=== PATIENT | female | born 1945 | race Caucasian/White ===

== ENCOUNTER 2017-05-20 00:53 | Inpatient (IN) | payer MEDICARE ==
[~2017-05-20] VITALS: Ht 154.9 cm; Wt 71.3 kg
[2017-05-20] MEDS ORDERED: SIMV20TA3 PO (01:19)
[2017-05-20] MEDS ORDERED: AMIT50TA PO (01:19)
[2017-05-20] MEDS ORDERED: LIRA0.6P2 SQ (01:19)
[2017-05-20] MEDS ORDERED: QUIN20TA7 PO (01:19)
[2017-05-20] MEDS ORDERED: DONE10TA7 PO (01:19)
[2017-05-20] MEDS ORDERED: METF10002 PO (01:19)
[2017-05-20] MEDS ORDERED: ACETAMINOPHEN 325 MG TABLET PO PRN (02:45)
[2017-05-20] MEDS ORDERED: MAGNESIUM HYDROXIDE 2,400 MG/30 ML ORAL.SUSP. PO PRN (02:45)
[2017-05-20] MEDS ORDERED: METHYL SALICYLATE/MENTHOL TOPICAL OINTMENT 29GM TUBE. TP PRN (02:45)
[2017-05-20] MEDS ORDERED: MAG HYDROX/AL HYDROX/SIMETH 30 ML ORAL.SUSP PO PRN (02:45)
[2017-05-20 03:03] VITALS: BP 202/111
[2017-05-20 05:42] VITALS: BP 186/95
--- NOTE | 2017-05-20 06:00 | PDOC1 ---
History of Present Illness Reason for Visit: Behaviors History of Present Illness Pt here for evaluation of dementia in H unit. Pt is a relatively poor historian, though her ROS seems accurate. She denies any physical problems. States she does have a chronic rash on her arms that she uses a salve for, but does not have it here. She states she normally lives with her . Allergies: Coded Allergies: No Known Drug Allergies (Unverified , 05/20/17) Past Medical History Cardiac: HTN, hyperipidemia Endocrine: Diabetes Past Surgical History: No pertinent history Family History: No pertinent hx Past Social History Smoke: No Alcohol: none Drugs: None Lives: with Family Review of Systems Review Of Systems Fourteen system , review of systems has been reviewed. 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 all other systems are negative, non pertinent or non contributory Allergies: Coded Allergies: No Known Drug Allergies (Unverified , 05/20/17) Medications Current Medications Acetaminophen (Tylenol) 650 mg PRN Q6HRS PRN PO PAIN / TEMP; Start 05/20/17 at 02:45 Multi-Ingredient Ointment (Analgesic [employer]) 1 renetta PRN QID PRN TP MUSCLE PAIN; Start 05/20/17 at 02:45 Al Hydroxide/Mg Hydroxide (Mylanta Plus Xs) 15 ml PRN AFTMEALHC PRN PO DYSPEPSIA; Start 05/20/17 at 02:45 Magnesium Hydroxide (Milk Of Magnesia) 2,400 mg PRN QHS PRN PO CONSTIPATION; Start 05/20/17 at 02:45 Amitriptyline HCl (Elavil) 50 mg HS PO ; Start 05/20/17 at 21:00 Donepezil HCl (Aricept) 10 mg HS PO ; Start 05/20/17 at 21:00 Active Scripts Active Reported Victoza 3-Johan (Liraglutide) 0.6 Mg/0.1 Ml Pen.injctr 1.8 Mg SQ DAILY Amitriptyline Hcl 50 Mg Tablet 50 Mg PO HS Simvastatin 20 Mg Tablet 20 Mg PO HS Donepezil Hcl 10 Mg Tablet 10 Mg PO HS Metformin Hcl 1,000 Mg Tablet 1,000 Mg PO [id number] Quinapril Hcl 20 Mg Tablet 20 Mg PO DAILY Exam Vital Signs Vital Signs Date Time Temp Pulse Resp B/P (MAP) Pulse Ox O2 Delivery O2 Flow Rate FiO2 05/20/17 05:42 98.2 100 16 186/95 (125) 95 Room Air General Appearance: Alert, Cooperative, No acute distress HEENT: Atraumatic, PERRLA, EOMI, Mucous membr. moist/pink, Other (Neck supple, full ROM, no JVD, no LAD) Respiratory: Clear to auscultation, Normal air movement Heart: Regular rate, Normal S1, Normal S2, No murmurs Abdominal: Normal bowel sounds, Soft, No tenderness, No hepatospenomegaly Extremities: No edema, Normal pulses, Other (Both arms w/ thickened excoriated skin and no infection, c/w possible eczema or some other type of dermatitis) Skin: No breakdown Neuro: Normal gait, Strength at 5/5 X4 ext, Normal tone, Cranial nerves 3-12 NL Psych/Mental Status: Mood NL Assessment/Plan Assessment/Plan 1. Dementia w behaviors: Per Dr. Ledesma 2. HTN: ELevated. Increase lisinopril to 20 mg BID. Monitor pressures. 3. Hypokalemia: KCL 40 meq PO x 1, recheck BMP in AM. 4. Hypomagnesemia: Start 400 mg Mag-Ox daily, repeat in AM. 5. DM: COntinue metformin, monitor sugars. 6. DVT proph: Ambulatory. COURSE Allergies Coded Allergies Type Severity Reaction Last Updated Verified No Known Drug Allergies 05/20/17 No Current Medications Medications (Trade) Dose Ordered Sig/[place] Route PRN Reason Start Time Stop Time Status Last Admin Dose Admin Acetaminophen (Tylenol) 650 mg PRN Q6HRS PRN PO PAIN / TEMP 05/20/17 02:45 Multi-Ingredient Ointment (Analgesic [employer]) 1 renetta PRN QID PRN TP MUSCLE PAIN 05/20/17 02:45 Al Hydroxide/Mg Hydroxide (Mylanta Plus Xs) 15 ml PRN AFTMEALHC PRN PO DYSPEPSIA 05/20/17 02:45 Magnesium Hydroxide (Milk Of Magnesia) 2,400 mg PRN QHS PRN PO CONSTIPATION 05/20/17 02:45 Amitriptyline HCl (Elavil) 50 mg HS PO 05/20/17 21:00 Donepezil HCl (Aricept) 10 mg HS PO 05/20/17 21:00 Vital Signs Date Time Temp Pulse Resp B/P (MAP) Pulse Ox O2 Delivery O2 Flow Rate FiO2 05/20/17 05:42 98.2 100 16 186/14 (318) 95 Room Air KIP ODELL MD May 20, 2017 06:00
[2017-05-20 07:12] LABS: BASO % 1 % (0-3); EOS # 0.2 x10^3/uL (0.0-0.7); EOS % 4 % (0-3); HEMATOCRIT 38.7 % (36.0-47.0); HEMOGLOBIN 12.9 g/dL (12.0-15.5); LYMPH # 1.8 x10^3/uL (1.0-4.8); LYMPH % 25 % (24-48); MEAN CORPUSCULAR HEMOGLOBIN 29 pg (25-35); MEAN CORPUSCULAR HGB CONC 33 g/dL (31-37); MEAN CORPUSCULAR VOLUME 87 fL (79-100); MONO # 0.5 x10^3/uL (0.0-1.1); MONO % 8 % (0-9); NEUT # 4.4 x10^3uL (1.8-7.7); NEUT % 63 % (31-73); PLATELET COUNT 239 x10^3/uL (140-400); RED BLOOD COUNT 4.46 x10^6/uL (3.50-5.40); RED CELL DISTRIBUTION WIDTH 14.8 % (11.5-14.5)
[2017-05-20 07:29] LABS: ALBUMIN 3.2 g/dL (3.4-5.0); ALBUMIN/GLOBULIN RATIO 0.9 (1.0-1.7); CALCIUM 8.5 mg/dL (8.5-10.1); CREATININE 0.9 mg/dL (0.6-1.0); GFR 61.2; POTASSIUM 3.3 mmol/L (3.5-5.1); TOTAL BILIRUBIN 0.2 mg/dL (0.2-1.0); TOTAL PROTEIN 6.8 g/dL (6.4-8.2)
[2017-05-20] MEDS: metFORMIN 500 MG TABLET PO SCH ×2 (08:07→17:41)
[2017-05-20] MEDS ORDERED: LISINOPRIL 20 MG TABLET PO SCH (09:00)
[2017-05-20] MEDS ORDERED: Liraglutide (Victoza) 1.8 MG SQ SCH (09:00)
[2017-05-20 10:58] LABS: THYROID STIM HORMONE (TSH) 3.484 uIU/mL (0.358-3.740)
[2017-05-20 12:08] LABS: T3 TOTAL 140 ng/dL (71-180); THYROXINE 7.7 ug/dL (4.5-12.0)
[2017-05-20] MEDS ORDERED: GLIM2TAB2 PO (16:12)
[2017-05-20 16:28] VITALS: BP 134/79
[2017-05-20] MEDS: Liraglutide (Victoza) 1.8 MG SQ SCH (17:40)
[2017-05-20] MEDS ORDERED: POTASSIUM CHLORIDE 20 MEQ TABLET.ER. PO ONE (20:00)
[2017-05-20] MEDS: LISINOPRIL 20 MG TABLET PO SCH (20:23)
[2017-05-20] MEDS: DONEPEZIL HCL 10 MG TABLET PO SCH (20:23)
[2017-05-20] MEDS: MAGNESIUM OXIDE 400 MG TABLET PO SCH (20:24)
[2017-05-20] MEDS: SIMVASTATIN 20 MG TABLET PO SCH (20:24)
[2017-05-20] MEDS ORDERED: AMITRIPTYLINE HCL 50 MG TABLET PO SCH (21:00)
[2017-05-20 21:11] LABS: HEMOGLOBIN A1C 6.4 % (4.8-5.6)
--- NOTE | 2017-05-20 23:15 | PDOC ---
Exam Roberto Demential Exam: Roberto Note: Please also refer to the separate dictated note~for this date of service dictated separately.~Patient seen individually. Discussed the patient with Nursing staff reviewed the chart.~Reviewed interim history and current functioning. Reviewed vital signs,~Labs/ Radiology~and current medications noted below. Continue current treatment with the changes noted in the dictated addendum note Assessment: Vital Signs: Vital Signs Date Time Temp Pulse Resp B/P (MAP) Pulse Ox O2 Delivery O2 Flow Rate FiO2 05/20/17 20:23 96 134/79 05/20/17 16:28 98.6 16 97 05/20/17 05:42 Room Air I&O Intake and Output 05/20/17 07:00 Intake Total 120 ml Balance 120 ml Intake Oral 120 ml Labs: Laboratory Tests Test 05/20/17 06:15 05/20/17 06:52 Magnesium Level 1.6 mg/dL (1.8-2.4) L White Blood Count 7.0 x10^3/uL (4.0-11.0) Red Blood Count 4.46 x10^6/uL (3.50-5.40) Hemoglobin 12.9 g/dL (12.0-15.5) Hematocrit 38.7 % (36.0-47.0) Mean Corpuscular Volume 87 fL (79-100) Mean Corpuscular Hemoglobin 29 pg (25-35) Mean Corpuscular Hemoglobin Concent 33 g/dL (31-37) Red Cell Distribution Width 14.8 % (11.5-14.5) H Platelet Count 239 x10^3/uL (140-400) Neutrophils (%) (Auto) 63 % (31-73) Lymphocytes (%) (Auto) 25 % (24-48) Monocytes (%) (Auto) 8 % (0-9) Eosinophils (%) (Auto) 4 % (0-3) H Basophils (%) (Auto) 1 % (0-3) Neutrophils # (Auto) 4.4 x10^3uL (1.8-7.7) Lymphocytes # (Auto) 1.8 x10^3/uL (1.0-4.8) Monocytes # (Auto) 0.5 x10^3/uL (0.0-1.1) Eosinophils # (Auto) 0.2 x10^3/uL (0.0-0.7) Basophils # (Auto) 0.0 x10^3/uL (0.0-0.2) Sodium Level 139 mmol/L (136-145) Potassium Level 3.3 mmol/L (3.5-5.1) L Chloride Level 104 mmol/L (98-107) Carbon Dioxide Level 31 mmol/L (21-32) Anion Gap 4 (6-14) L Blood Urea Nitrogen 13 mg/dL (7-20) Creatinine 0.9 mg/dL (0.6-1.0) Estimated GFR (Cockcroft-Gault) 61.2 BUN/Creatinine Ratio 14 (6-20) Glucose Level 242 mg/dL (70-99) H Hemoglobin A1c 6.4 % (4.8-5.6) H Calcium Level 8.5 mg/dL (8.5-10.1) Iron Level 51 ug/dL (50-170) Total Iron Binding Capacity 291 ug/dL (250-450) Iron Saturation 18 % (15-34) Total Bilirubin 0.2 mg/dL (0.2-1.0) Aspartate Amino Transferase (AST) 23 U/L (15-37) Alanine Aminotransferase (ALT) 20 U/L (14-59) Alkaline Phosphatase 67 U/L (46-116) Total Protein 6.8 g/dL (6.4-8.2) Albumin 3.2 g/dL (3.4-5.0) L Albumin/Globulin Ratio 0.9 (1.0-1.7) L Triglycerides Level 119 mg/dL (0-150) Cholesterol Level 181 mg/dL (0-200) LDL Cholesterol, Calculated 90 mg/dL (0-100) VLDL Cholesterol, Calculated 23 mg/dL (0-40) Non-HDL Cholesterol Calculated 113 mg/dL (0-129) HDL Cholesterol 68 mg/dL (40-60) H Cholesterol/HDL Ratio 2.0 25-Hydroxy Vitamin D Total Pending Thyroid Stimulating Hormone (TSH) 3.484 uIU/mL (0.358-3.740) Thyroxine (T4) 7.7 ug/dL (4.5-12.0) Total Triiodothyronine (TT3) 140 ng/dL (71-180) RPR Titer Additional Testing Pending Current Medications: Meds: Current Medications Acetaminophen (Tylenol) 650 mg PRN Q6HRS PRN PO PAIN / TEMP; Start 05/20/17 at 02:45 Multi-Ingredient Ointment (Analgesic [place]) 1 renetta PRN QID PRN TP MUSCLE PAIN; Start 05/20/17 at 02:45 Al Hydroxide/Mg Hydroxide (Mylanta Plus Xs) 15 ml PRN AFTMEALHC PRN PO DYSPEPSIA; Start 05/20/17 at 02:45 Magnesium Hydroxide (Milk Of Magnesia) 2,400 mg PRN QHS PRN PO CONSTIPATION; Start 05/20/17 at 02:45 Amitriptyline HCl (Elavil) 50 mg HS PO Last administered on 05/20/17 20:24; Start 05/20/17 at 21:00 Donepezil HCl (Aricept) 10 mg HS PO Last administered on 05/20/17 20:23; Start 05/20/17 at 21:00 Simvastatin (Zocor) 20 mg HS PO Last administered on 05/20/17 20:24; Start 09/24 at 21:00 Non-Formulary Medication 1.8 mg DAILY SQ ; Start 05/20/17 at 09:00; Stop at 16:33; Status DC Metformin HCl (Glucophage) 1,000 mg BIDWMEALS PO Last administered on 17:41; Start 05/20/17 at 08:00 Lisinopril (Prinivil) 20 mg DAILY PO Last administered on 05/20/17 08:07; Start 05/20/17 at 09:00; Stop 05/20/17 at 19:28; Status DC Olanzapine (ZyPREXA ZYDIS) 2.5 mg PRN Q2HR PRN PO PSYCHOSIS; Start 05/20/17 at 16:00 Non-Formulary Medication 1.8 mg DAILYWSUP SQ Last administered on 05/20/17 17: 40; Start 05/20/17 at 17:00 Potassium Chloride (Klor-Con) 40 meq 1X ONCE PO Last administered on 20:23; Start 05/20/17 at 20:00; Stop 05/20/17 at 20:01; Status DC Magnesium Oxide (Magnesium Oxide) 400 mg DAILY PO Last administered on 20:24; Start 05/20/17 at 20:00 Lisinopril (Prinivil) 20 mg BID PO Last administered on 05/20/17 20:23; Start 05/20/17 at 21:00 Multi-Ingred Cream/Lotion/Oil/ Oint (Hydrocerin) 1 renetta BID TP ; Start 05/21/17 at 09:00 Active Scripts Active Reported Glimepiride 2 Mg Tablet 2 Mg PO DAILY Victoza 3-Johan (Liraglutide) 0.6 Mg/0.1 Ml Pen.injctr 1.8 Mg SQ DAILY Amitriptyline Hcl 50 Mg Tablet 50 Mg PO HS Simvastatin 20 Mg Tablet 20 Mg PO HS Donepezil Hcl 10 Mg Tablet 10 Mg PO HS Metformin Hcl 1,000 Mg Tablet 1,000 Mg PO [id number] Quinapril Hcl 20 Mg Tablet 20 Mg PO DAILY Diagnosis: Problems: (1) Dementia (2) Anxiety disorder (3) Dementia in Alzheimer's disease with delusions (4) Dementia in Alzheimer's disease with depression (5) Dementia, vascular, with delusions (6) Dementia, vascular, with depression (7) Impulse control disorder (8) Psychosis, atypical SHAE GRANT MD May 20, 2017 23:15
[2017-05-21 06:17] VITALS: BP 105/60
[2017-05-21] MEDS: metFORMIN 500 MG TABLET PO SCH ×2 (07:54→18:28)
[2017-05-21] MEDS: MAGNESIUM OXIDE 400 MG TABLET PO SCH (07:54)
[2017-05-21] MEDS: LISINOPRIL 20 MG TABLET PO SCH ×2 (07:55→20:15)
[2017-05-21 08:06] LABS: CALCIUM 8.9 mg/dL (8.5-10.1); CREATININE 0.9 mg/dL (0.6-1.0); GFR 61.2; MAGNESIUM 1.7 mg/dL (1.8-2.4); POTASSIUM 3.9 mmol/L (3.5-5.1)
[2017-05-21] MEDS: MINERAL OIL/PETROLATUM TOPICAL CREAM 113GM JAR. TP SCH ×2 (10:50→20:17)
--- NOTE | 2017-05-21 12:00 | HP ---
ADMIT DATE: 05/20/2017 I met with the patient the evening of 05/20/2017 for this evaluation. IDENTIFYING DATA: The patient is a 72-year-old female referred to us from [facility] Emergency Room where she presented from home where she lives with her . The patient has had increasing short-term memory problems, has been irritable, angry regarding her increasing forgetfulness, has made suicidal statements, agitated. Despite her confusion, reportedly, she is still driving. She has been extremely labile, walked out of her doctor's office. Behaviors are deemed dangerous and failed outpatient psychiatric interventions resulting in this referral for inpatient psychiatric stabilization. CHIEF COMPLAINT: "I came here this morning." This was accurate. HISTORY OF PRESENT ILLNESS: The patient has a history of dementia, Alzheimer's of vascular type. She continues to reside at home with her and is getting increasingly paranoid, depressed, making suicidal statements, frustrated about her memory loss, angry, irritable, labile in her mood. She reportedly has continued to drive raising additional risks of her behaviors. No clear history of bipolar disorder, suicidal or homicidal ideation. PAST PSYCHIATRIC HISTORY: As above. MEDICAL HISTORY: Code status: DNR. Positive for hypertension, diabetes mellitus, hyperlipidemia. DIET: Low sugar diabetic diet. Takes her medications whole. Ambulates independently. ALLERGIES: Negative. CURRENT PSYCHOTROPICS: Aricept 10 mg a day, amitriptyline 50 mg at bedtime, Zyprexa p.r.n. FAMILY HISTORY: Noncontributory. SOCIAL HISTORY: No history of alcohol or drug abuse, physical, sexual or elder abuse. She is not known to be a perpetrator. MENTAL STATUS EXAMINATION: The patient was seen individually evening of 05/20/2017. She is pleasant, smiling as I met with her, walking up and down the hallway with a couple of other demented patients following her. She thought the year was 2015, unaware of the month, knew that she came in earlier in the day on 05/20/2017, that she lives at home with her , minimizes most problems, but smiled and was able to accept that she is having memory problems. Speech is coherent. Thought processes generally goal directed. Attention span short. Language function intact. Mood is dysphoric, anxious, and somewhat paranoid. Affect is mood congruent. No active suicidal or homicidal ideation. LABORATORY DATA: Reviewed. REVIEW OF SYSTEMS: No CV, , eye, ENT or pulmonary system symptoms on review. IMPRESSION: Major neurocognitive disorder, probably vascular, Alzheimer's with depression, delusion, behavioral disturbance; anxiety disorder, unspecified, impulse control disorder, unspecified. Rest diagnoses unchanged from above. PLAN: Admit to Geropsychiatry Unit at [facility]. I will see the patient daily individually from a psychiatric standpoint. Medical followup per Dr. Mc/Dr. Anna. Continue the patient on her current psychotropics. We will consider starting Zoloft as an antidepressant and antianxiety agent that should help her agitation as well. May consider low-dose Seroquel during the day and consider stopping the amitriptyline since the central anticholinergic side effects could worsen some of her agitation. Make further adjustments as clinically indicated. MAN Miri GRANT MD DR: HAN/john paul JOB#: [id number] / [id number]
[2017-05-21 17:29] VITALS: BP 132/62
[2017-05-21] MEDS: Liraglutide (Victoza) 1.8 MG SQ SCH (18:40)
[2017-05-21] MEDS: DONEPEZIL HCL 10 MG TABLET PO SCH (20:14)
[2017-05-21] MEDS: SIMVASTATIN 20 MG TABLET PO SCH (20:15)
[2017-05-21] MEDS: MIRTAZAPINE 7.5 MG TABLET. PO SCH (20:17)
--- NOTE | 2017-05-21 20:21 | PDOC ---
Exam Roberto Demential Exam: Roberto Note: Please also refer to the separate dictated note~for this date of service dictated separately.~Patient seen individually. Discussed the patient with Nursing staff reviewed the chart.~Reviewed interim history and current functioning. Reviewed vital signs,~Labs/ Radiology~and current medications noted below. Continue current treatment with the changes noted in the dictated addendum note Assessment: Vital Signs: Vital Signs Date Time Temp Pulse Resp B/P (MAP) Pulse Ox O2 Delivery O2 Flow Rate FiO2 05/21/17 20:15 86 132/62 05/21/17 17:29 98.6 16 97 05/20/17 05:42 Room Air I&O Intake and Output 05/21/17 07:00 Intake Total 1000 ml Balance 1000 ml Intake Oral 1000 ml Labs: Laboratory Tests Test 05/21/17 07:00 Sodium Level 141 mmol/L (136-145) Potassium Level 3.9 mmol/L (3.5-5.1) Chloride Level 104 mmol/L (98-107) Carbon Dioxide Level 28 mmol/L (21-32) Anion Gap 9 (6-14) Blood Urea Nitrogen 14 mg/dL (7-20) Creatinine 0.9 mg/dL (0.6-1.0) Estimated GFR (Cockcroft-Gault) 61.2 Glucose Level 156 mg/dL (70-99) H Calcium Level 8.9 mg/dL (8.5-10.1) Magnesium Level 1.7 mg/dL (1.8-2.4) L Current Medications: Meds: Current Medications Acetaminophen (Tylenol) 650 mg PRN Q6HRS PRN PO PAIN / TEMP; Start 05/20/17 at 02:45 Multi-Ingredient Ointment (Analgesic [place]) 1 renetta PRN QID PRN TP MUSCLE PAIN; Start 05/20/17 at 02:45 Al Hydroxide/Mg Hydroxide (Mylanta Plus Xs) 15 ml PRN AFTMEALHC PRN PO DYSPEPSIA; Start 05/20/17 at 02:45 Magnesium Hydroxide (Milk Of Magnesia) 2,400 mg PRN QHS PRN PO CONSTIPATION; Start 05/20/17 at 02:45 Amitriptyline HCl (Elavil) 50 mg HS PO Last administered on 05/20/17t 20:24; Start 05/20/17 at 21:00; Stop 05/21/17 at 20:03; Status DC Donepezil HCl (Aricept) 10 mg HS PO Last administered on 05/21/17 20:14; Start 05/20/17 at 21:00 Simvastatin (Zocor) 20 mg HS PO Last administered on 05/21/17 20:15; Start 09/24 at 21:00 Non-Formulary Medication 1.8 mg DAILY SQ ; Start 05/20/17 at 09:00; Stop at 16:33; Status DC Metformin HCl (Glucophage) 1,000 mg BIDWMEALS PO Last administered on 18:28; Start 05/20/17 at 08:00 Lisinopril (Prinivil) 20 mg DAILY PO Last administered on 05/20/17 08:07; Start 05/20/17 at 09:00; Stop 05/20/17 at 19:28; Status DC Olanzapine (ZyPREXA ZYDIS) 2.5 mg PRN Q2HR PRN PO PSYCHOSIS; Start 05/20/17 at 16:00 Non-Formulary Medication 1.8 mg DAILYWSUP SQ Last administered on 05/21/17 18: 40; Start 05/20/17 at 17:00 Potassium Chloride (Klor-Con) 40 meq 1X ONCE PO Last administered on 20:23; Start 05/20/17 at 20:00; Stop 05/20/17 at 20:01; Status DC Magnesium Oxide (Magnesium Oxide) 400 mg DAILY PO Last administered on 07:54; Start 05/20/17 at 20:00 Lisinopril (Prinivil) 20 mg BID PO Last administered on 05/21/17 20:15; Start 05/20/17 at 21:00 Multi-Ingred Cream/Lotion/Oil/ Oint (Hydrocerin) 1 renetta BID TP Last administered on 05/21/17 20:17; Start 05/21/17 at 09:00 Mirtazapine (Remeron) 7.5 mg QHS PO Last administered on 05/21/17 20:17; Start 05/21/17 at 21:00 Sertraline HCl (Zoloft) 25 mg DAILY PO ; Start 05/22/17 at 09:00 Active Scripts Active Reported Glimepiride 2 Mg Tablet 2 Mg PO DAILY Victoza 3-Johan (Liraglutide) 0.6 Mg/0.1 Ml Pen.injctr 1.8 Mg SQ DAILY Amitriptyline Hcl 50 Mg Tablet 50 Mg PO HS Simvastatin 20 Mg Tablet 20 Mg PO HS Donepezil Hcl 10 Mg Tablet 10 Mg PO HS Metformin Hcl 1,000 Mg Tablet 1,000 Mg PO [id number] Quinapril Hcl 20 Mg Tablet 20 Mg PO DAILY Diagnosis: Problems: (1) Dementia (2) Anxiety disorder (3) Dementia in Alzheimer's disease with delusions (4) Dementia in Alzheimer's disease with depression (5) Dementia, vascular, with delusions (6) Dementia, vascular, with depression (7) Impulse control disorder (8) Psychosis, atypical SHAE GRANT MD May 21, 2017 20:21
--- NOTE | 2017-05-22 05:21 | ACF ---
Admission Criteria Forms PSYCHIATRIC DISORDERS Clinical Indications for Inpatient Care (Place 'X' for any and all applicable criteria): Ongoing inpatient care may be needed for 1 or more of the following(1)(2)(3)(4)( 6)(7)(8): [ ]I. Danger to self or others not manageable at lower level of care. [ ]II. Grave disability (eg, inability to perform self care necessary at lower level of care) [ ]III. Agitation or inappropriate behavior interfering with care for primary condition (eg, attempting to discontinue lines or drains prematurely, unable to cooperate with respiratory care) [X]IV. Severe disability or disorder indicated by ALL of the following: [X]a) Severe behavioral health disorder-related symptoms or condition indicated by 1 or more of the following: [X]i) Severe problem with cognition, memory, judgment, or impulse control [ ]ii) Severe clinical manifestations (eg, hallucinations, delusions, other acute psychotic symptoms, coco, extreme agitation or anxiety) [X]b) Patient management at lower level of care is not feasible until acute intervention or modification is initiated. Extended stay beyond goal length of stay for the primary condition may be needed untilALLof the following are present(1)(2)(3)(4)(722)(23): [ ]a) Danger to self or others is absent or manageable at lower level of care [ ]b) Behavior crisis management, including physical or chemical restraints, is required and is not available at a lower level of care. [ ]c) Behavioral symptoms (e.g., agitation, somnolence, inappropriate behavior) are present, and are not manageable at a lower level of care. [ ]d) Patient cannot understand follow-up treatment and crisis plan. [ ]e) Provider and supports are sufficiently available at lower level of care. [ ]f) Patient can participate (e.g., verify absence of plan for harm) and is in needed of monitoring. The original [facility] [employer] content created by [facility] [employer] has been revised. The portions of the content which have been revised are identified through the use of italic text, and [employer] has neither reviewed nor approved the modified material. All other unmodified content is copyright [facility] [employer]. Please see references footnoted in the original [facility] edition 2015 Admission Criteria Met?: Yes TATIANA MEADOWS May 22, 2017 05:21
[2017-05-22 06:15] VITALS: BP 134/72
[2017-05-22] MEDS: metFORMIN 500 MG TABLET PO SCH ×2 (08:00→17:39)
[2017-05-22] MEDS: MAGNESIUM OXIDE 400 MG TABLET PO SCH (08:00)
[2017-05-22] MEDS: LISINOPRIL 20 MG TABLET PO SCH ×2 (08:00→19:29)
[2017-05-22] MEDS: MINERAL OIL/PETROLATUM TOPICAL CREAM 113GM JAR. TP SCH ×2 (08:01→19:28)
[2017-05-22] MEDS ORDERED: SERTRALINE 25 MG TABLET. PO SCH (09:00)
[2017-05-22 16:51] VITALS: BP 147/82
[2017-05-22] MEDS: Liraglutide (Victoza) 1.8 MG SQ SCH (17:39)
[2017-05-22] MEDS: SIMVASTATIN 20 MG TABLET PO SCH (19:29)
[2017-05-22] MEDS: MIRTAZAPINE 7.5 MG TABLET. PO SCH (19:29)
[2017-05-22] MEDS: DONEPEZIL HCL 10 MG TABLET PO SCH (19:29)
--- NOTE | 2017-05-22 20:19 | PDOC ---
Exam Roberto Demential Exam: Roberto Note: Please also refer to the separate dictated note~for this date of service dictated separately.~Patient seen individually. Discussed the patient with Nursing staff reviewed the chart.~Reviewed interim history and current functioning. Reviewed vital signs,~Labs/ Radiology~and current medications noted below. Continue current treatment with the changes noted in the dictated addendum note Assessment: Vital Signs: Vital Signs Date Time Temp Pulse Resp B/P (MAP) Pulse Ox O2 Delivery O2 Flow Rate FiO2 05/22/17 19:29 104 147/82 05/22/17 16:51 98.0 18 98 05/20/17 05:42 Room Air I&O Intake and Output 05/22/17 07:00 Intake Total 1260 ml Balance 1260 ml Intake Oral 1260 ml # Voids 3 Labs: Laboratory Tests Test 05/22/17 07:31 05/22/17 17:01 05/22/17 19:25 Glucose (Fingerstick) 157 mg/dL (70-99) H 209 mg/dL (70-99) H 176 mg/dL (70-99) H Current Medications: Meds: Current Medications Acetaminophen (Tylenol) 650 mg PRN Q6HRS PRN PO PAIN / TEMP; Start 05/20/17 at 02:45 Multi-Ingredient Ointment (Analgesic [place]) 1 renetta PRN QID PRN TP MUSCLE PAIN; Start 05/20/17 at 02:45 Al Hydroxide/Mg Hydroxide (Mylanta Plus Xs) 15 ml PRN AFTMEALHC PRN PO DYSPEPSIA; Start 05/20/17 at 02:45 Magnesium Hydroxide (Milk Of Magnesia) 2,400 mg PRN QHS PRN PO CONSTIPATION; Start 05/20/17 at 02:45 Amitriptyline HCl (Elavil) 50 mg HS PO Last administered on 05/20/17 20:24; Start 05/20/17 at 21:00; Stop 05/21/17 at 20:03; Status DC Donepezil HCl (Aricept) 10 mg HS PO Last administered on 05/22/17 19:29; Start 05/20/17 at 21:00 Simvastatin (Zocor) 20 mg HS PO Last administered on 05/22/17 19:29; Start 09/24 at 21:00 Non-Formulary Medication 1.8 mg DAILY SQ ; Start 05/20/17 at 09:00; Stop at 16:33; Status DC Metformin HCl (Glucophage) 1,000 mg BIDWMEALS PO Last administered on 17:39; Start 05/20/17 at 08:00 Lisinopril (Prinivil) 20 mg DAILY PO Last administered on 05/20/17 08:07; Start 05/20/17 at 09:00; Stop 05/20/17 at 19:28; Status DC Olanzapine (ZyPREXA ZYDIS) 2.5 mg PRN Q2HR PRN PO PSYCHOSIS Last administered on 05/22/17 00:59; Start 05/20/17 at 16:00 Non-Formulary Medication 1.8 mg DAILYWSUP SQ Last administered on 05/22/17 17: 39; Start 05/20/17 at 17:00 Potassium Chloride (Klor-Con) 40 meq 1X ONCE PO Last administered on 20:23; Start 05/20/17 at 20:00; Stop 05/20/17 at 20:01; Status DC Magnesium Oxide (Magnesium Oxide) 400 mg DAILY PO Last administered on 08:00; Start 05/20/17 at 20:00 Lisinopril (Prinivil) 20 mg BID PO Last administered on 05/22/17 19:29; Start 05/20/17 at 21:00 Multi-Ingred Cream/Lotion/Oil/ Oint (Hydrocerin) 1 renetta BID TP Last administered on 05/22/17 19:28; Start 05/21/17 at 09:00 Mirtazapine (Remeron) 7.5 mg QHS PO Last administered on 05/22/17 19:29; Start 05/21/17 at 21:00 Sertraline HCl (Zoloft) 25 mg DAILY PO Last administered on 05/22/17 08:01; Start 05/22/17 at 09:00; Stop 05/22/17 at 19:05; Status DC Sertraline HCl (Zoloft) 50 mg DAILY PO ; Start 05/23/17 at 09:00 Active Scripts Active Reported Glimepiride 2 Mg Tablet 2 Mg PO DAILY Victoza 3-Johan (Liraglutide) 0.6 Mg/0.1 Ml Pen.injctr 1.8 Mg SQ DAILY Amitriptyline Hcl 50 Mg Tablet 50 Mg PO HS Simvastatin 20 Mg Tablet 20 Mg PO HS Donepezil Hcl 10 Mg Tablet 10 Mg PO HS Metformin Hcl 1,000 Mg Tablet 1,000 Mg PO [id number] Quinapril Hcl 20 Mg Tablet 20 Mg PO DAILY Diagnosis: Problems: (1) Dementia (2) Anxiety disorder (3) Dementia in Alzheimer's disease with delusions (4) Dementia in Alzheimer's disease with depression (5) Dementia, vascular, with delusions (6) Dementia, vascular, with depression (7) Impulse control disorder (8) Psychosis, atypical SHAE GRANT MD May 22, 2017 20:19
[2017-05-23 05:29] VITALS: BP 122/74
[2017-05-23] MEDS: LISINOPRIL 20 MG TABLET PO SCH ×2 (08:22→19:39)
[2017-05-23] MEDS: metFORMIN 500 MG TABLET PO SCH ×2 (08:22→17:43)
[2017-05-23] MEDS: MAGNESIUM OXIDE 400 MG TABLET PO SCH (08:22)
[2017-05-23] MEDS: SERTRALINE 50 MG TABLET. PO SCH (08:23)
[2017-05-23] MEDS: MINERAL OIL/PETROLATUM TOPICAL CREAM 113GM JAR. TP SCH ×2 (08:23→19:40)
--- NOTE | 2017-05-23 09:24 | PN ---
DATE: 05/21/2017 PSYCHIATRIC PROGRESS NOTE This is a late entry 05/21/2017, covers elements not covered in my initial note of 05/21/2017. SUBJECTIVE: Met with the patient evening of 05/21/2017. Per nursing report, the patient's visited and expressed some unhappiness about the patient being here at the hospital and did inform the nursing staff, she had a CT head and EKG in the past, which were unremarkable. We will have a Neurology consult with Dr. Jade to make sure there is nothing neurologically to account for her memory deficits. She slept 7-1/2 hours the previous evening. REVIEW OF SYSTEMS: No CV, , pulmonary, eye, ENT system symptoms on review. Reliability varies. MENTAL STATUS EXAM: Oriented to herself and at times to situation. Speech is coherent, abstraction fair, computation impaired, language function intact, attention span short. Mood and affect remain somewhat anxious. LABORATORY DATA: Reviewed. IMPRESSION: Unchanged from initial note. PLAN: In addition to what is noted above, we will change the amitriptyline 50 mg at bedtime to Remeron 7.5 mg at bedtime. The central anticholinergic side effects from amitriptyline could be worsening of confusion. We will also start Zoloft 25 mg a day. Reviewed drug interactions risk, benefit ratio, favors no further change at this time. MAN Miri GRANT MD DR: HAN/john paul JOB#: [id number] / [id number]
[2017-05-23 16:27] VITALS: BP 190/84
[2017-05-23] MEDS: Liraglutide (Victoza) 1.8 MG SQ SCH (17:43)
[2017-05-23] MEDS: DONEPEZIL HCL 10 MG TABLET PO SCH (19:38)
[2017-05-23] MEDS: MIRTAZAPINE 7.5 MG TABLET. PO SCH (19:39)
[2017-05-23] MEDS: SIMVASTATIN 20 MG TABLET PO SCH (19:39)
--- NOTE | 2017-05-23 19:52 | PDOC ---
Exam Roberto Demential Exam: Roberto Note: Please also refer to the separate dictated note~for this date of service dictated separately.~Patient seen individually. Discussed the patient with Nursing staff reviewed the chart.~Reviewed interim history and current functioning. Reviewed vital signs,~Labs/ Radiology~and current medications noted below. Continue current treatment with the changes noted in the dictated addendum note Assessment: Vital Signs: Vital Signs Date Time Temp Pulse Resp B/P (MAP) Pulse Ox O2 Delivery O2 Flow Rate FiO2 05/23/17 19:39 112 190/84 05/23/17 16:27 98.1 20 99 Room Air I&O Intake and Output 05/23/17 07:00 Intake Total 960 ml Balance 960 ml Intake Oral 960 ml Labs: Laboratory Tests Test 05/23/17 07:21 05/23/17 11:32 05/23/17 17:06 05/23/17 19:04 Glucose (Fingerstick) 142 mg/dL (70-99) H 170 mg/dL (70-99) H 158 mg/dL (70-99) H 238 mg/dL (70-99) H Current Medications: Meds: Current Medications Acetaminophen (Tylenol) 650 mg PRN Q6HRS PRN PO PAIN / TEMP; Start 05/20/17 at 02:45 Multi-Ingredient Ointment (Analgesic [place]) 1 renetta PRN QID PRN TP MUSCLE PAIN; Start 05/20/17 at 02:45 Al Hydroxide/Mg Hydroxide (Mylanta Plus Xs) 15 ml PRN AFTMEALHC PRN PO DYSPEPSIA; Start 05/20/17 at 02:45 Magnesium Hydroxide (Milk Of Magnesia) 2,400 mg PRN QHS PRN PO CONSTIPATION; Start 05/20/17 at 02:45 Amitriptyline HCl (Elavil) 50 mg HS PO Last administered on 05/20/17 20:24; Start 05/20/17 at 21:00; Stop 05/21/17 at 20:03; Status DC Donepezil HCl (Aricept) 10 mg HS PO Last administered on 05/23/17 19:38; Start 05/20/17 at 21:00 Simvastatin (Zocor) 20 mg HS PO Last administered on 05/23/17 19:39; Start 09/24 at 21:00 Non-Formulary Medication 1.8 mg DAILY SQ ; Start 05/20/17 at 09:00; Stop at 16:33; Status DC Metformin HCl (Glucophage) 1,000 mg BIDWMEALS PO Last administered on 17:43; Start 05/20/17 at 08:00 Lisinopril (Prinivil) 20 mg DAILY PO Last administered on 05/20/17 08:07; Start 05/20/17 at 09:00; Stop 05/20/17 at 19:28; Status DC Olanzapine (ZyPREXA ZYDIS) 2.5 mg PRN Q2HR PRN PO PSYCHOSIS Last administered on 05/22/17 00:59; Start 05/20/17 at 16:00 Non-Formulary Medication 1.8 mg DAILYWSUP SQ Last administered on 05/23/17 17: 43; Start 05/20/17 at 17:00 Potassium Chloride (Klor-Con) 40 meq 1X ONCE PO Last administered on 20:23; Start 05/20/17 at 20:00; Stop 05/20/17 at 20:01; Status DC Magnesium Oxide (Magnesium Oxide) 400 mg DAILY PO Last administered on 08:22; Start 05/20/17 at 20:00 Lisinopril (Prinivil) 20 mg BID PO Last administered on 05/23/17 19:39; Start 05/20/17 at 21:00 Multi-Ingred Cream/Lotion/Oil/ Oint (Hydrocerin) 1 renetta BID TP Last administered on 05/23/17 19:40; Start 05/21/17 at 09:00 Mirtazapine (Remeron) 7.5 mg QHS PO Last administered on 05/23/17 19:39; Start 05/21/17 at 21:00 Sertraline HCl (Zoloft) 25 mg DAILY PO Last administered on 05/22/17 08:01; Start 05/22/17 at 09:00; Stop 05/22/17 at 19:05; Status DC Sertraline HCl (Zoloft) 50 mg DAILY PO Last administered on 05/23/17 08:23; Start 05/23/17 at 09:00 Lorazepam (Ativan) 0.25 mg PRN Q2HR PRN PO ANXIETY / AGITATION; Start 05/23/17 at 18:45 Active Scripts Active Reported Glimepiride 2 Mg Tablet 2 Mg PO DAILY Victoza 3-Johan (Liraglutide) 0.6 Mg/0.1 Ml Pen.injctr 1.8 Mg SQ DAILY Amitriptyline Hcl 50 Mg Tablet 50 Mg PO HS Simvastatin 20 Mg Tablet 20 Mg PO HS Donepezil Hcl 10 Mg Tablet 10 Mg PO HS Metformin Hcl 1,000 Mg Tablet 1,000 Mg PO [id number] Quinapril Hcl 20 Mg Tablet 20 Mg PO DAILY Diagnosis: Problems: (1) Dementia (2) Anxiety disorder (3) Dementia in Alzheimer's disease with delusions (4) Dementia in Alzheimer's disease with depression (5) Dementia, vascular, with delusions (6) Dementia, vascular, with depression (7) Impulse control disorder (8) Psychosis, atypical SHAE GRANT MD May 23, 2017 19:52
--- NOTE | 2017-05-24 04:20 | PN ---
DATE: 05/22/2017 PSYCHIATRIC PROGRESS NOTE This is a late entry of 05/22/2017 covers elements not covered in my initial note of 05/22/2017. I met with the patient on evening of 05/22/2017. She takes her medications whole, somewhat obsessive, anxious, repetitively asking for cell phone, slept 5-3/4 hours previous evening. REVIEW OF SYSTEMS: No CV, , pulmonary, eye, ENT systems symptoms on review. Reliability poor. MENTAL STATUS EXAM: Oriented to herself. Insight, judgment, recent memory is impaired. Remote is better. Language function is intact. Attention span is short. Mood and affect, still somewhat anxious, labile but improved. LABORATORY DATA: Reviewed. IMPRESSION: Unchanged from initial note. PLAN: Increase Zoloft to 50 mg a day starting on the 05/23/2017. Continue Aricept 10 mg a day, Remeron 7.5 at bedtime, Zyprexa p.r.n. Adjust further as clinically indicated. SHAE GRANT MD DR: HAN/john paul JOB#: [id number] / [id number]
[2017-05-24 06:25] VITALS: BP 184/99
[2017-05-24] MEDS: metFORMIN 500 MG TABLET PO SCH ×2 (08:07→16:38)
[2017-05-24] MEDS: SERTRALINE 50 MG TABLET. PO SCH (08:07)
[2017-05-24] MEDS: MAGNESIUM OXIDE 400 MG TABLET PO SCH (08:07)
[2017-05-24] MEDS: LISINOPRIL 20 MG TABLET PO SCH ×2 (08:07→20:18)
[2017-05-24] MEDS: MINERAL OIL/PETROLATUM TOPICAL CREAM 113GM JAR. TP SCH ×2 (09:00→20:19)
[2017-05-24 16:30] VITALS: BP 170/84
[2017-05-24] MEDS: Liraglutide (Victoza) 1.8 MG SQ SCH (16:39)
[2017-05-24] MEDS: LORazepam 0.5 MG TABLET PO PRN (16:40)
--- NOTE | 2017-05-24 19:51 | PDOC ---
Exam Roberto Demential Exam: Roberto Note: Please also refer to the separate dictated note~for this date of service dictated separately.~Patient seen individually. Discussed the patient with Nursing staff reviewed the chart.~Reviewed interim history and current functioning. Reviewed vital signs,~Labs/ Radiology~and current medications noted below. Continue current treatment with the changes noted in the dictated addendum note Assessment: Vital Signs: Vital Signs Date Time Temp Pulse Resp B/P (MAP) Pulse Ox O2 Delivery O2 Flow Rate FiO2 05/24/17 16:30 98.5 107 20 170/84 (112) 99 05/23/17 16:27 Room Air I&O Intake and Output 05/24/17 07:00 Intake Total 1380 ml Balance 1380 ml Intake Oral 1380 ml # Bowel Movements 1 Labs: Laboratory Tests Test 05/24/17 07:37 05/24/17 11:43 05/24/17 16:59 05/24/17 19:14 Glucose (Fingerstick) 129 mg/dL (70-99) H 166 mg/dL (70-99) H 177 mg/dL (70-99) H 194 mg/dL (70-99) H Current Medications: Meds: Current Medications Acetaminophen (Tylenol) 650 mg PRN Q6HRS PRN PO PAIN / TEMP; Start 05/20/17 at 02:45 Multi-Ingredient Ointment (Analgesic [place]) 1 renetta PRN QID PRN TP MUSCLE PAIN; Start 05/20/17 at 02:45 Al Hydroxide/Mg Hydroxide (Mylanta Plus Xs) 15 ml PRN AFTMEALHC PRN PO DYSPEPSIA; Start 05/20/17 at 02:45 Magnesium Hydroxide (Milk Of Magnesia) 2,400 mg PRN QHS PRN PO CONSTIPATION; Start 05/20/17 at 02:45 Amitriptyline HCl (Elavil) 50 mg HS PO Last administered on 05/20/17 20:24; Start 05/20/17 at 21:00; Stop 05/21/17 at 20:03; Status DC Donepezil HCl (Aricept) 10 mg HS PO Last administered on 05/23/17 19:38; Start 05/20/17 at 21:00 Simvastatin (Zocor) 20 mg HS PO Last administered on 05/23/17 19:39; Start 09/24 at 21:00 Non-Formulary Medication 1.8 mg DAILY SQ ; Start 05/20/17 at 09:00; Stop at 16:33; Status DC Metformin HCl (Glucophage) 1,000 mg BIDWMEALS PO Last administered on 16:38; Start 05/20/17 at 08:00 Lisinopril (Prinivil) 20 mg DAILY PO Last administered on 05/20/17 08:07; Start 05/20/17 at 09:00; Stop 05/20/17 at 19:28; Status DC Olanzapine (ZyPREXA ZYDIS) 2.5 mg PRN Q2HR PRN PO PSYCHOSIS Last administered on 05/22/17 00:59; Start 05/20/17 at 16:00 Non-Formulary Medication 1.8 mg DAILYWSUP SQ Last administered on 05/24/17 16: 39; Start 05/20/17 at 17:00 Potassium Chloride (Klor-Con) 40 meq 1X ONCE PO Last administered on 20:23; Start 05/20/17 at 20:00; Stop 05/20/17 at 20:01; Status DC Magnesium Oxide (Magnesium Oxide) 400 mg DAILY PO Last administered on 08:07; Start 05/20/17 at 20:00 Lisinopril (Prinivil) 20 mg BID PO Last administered on 05/24/17 08:07; Start 05/20/17 at 21:00 Multi-Ingred Cream/Lotion/Oil/ Oint (Hydrocerin) 1 renetta BID TP Last administered on 05/23/17 19:40; Start 05/21/17 at 09:00 Mirtazapine (Remeron) 7.5 mg QHS PO Last administered on 05/23/17 19:39; Start 05/21/17 at 21:00 Sertraline HCl (Zoloft) 25 mg DAILY PO Last administered on 05/22/17 08:01; Start 05/22/17 at 09:00; Stop 05/22/17 at 19:05; Status DC Sertraline HCl (Zoloft) 50 mg DAILY PO Last administered on 05/24/17 08:07; Start 05/23/17 at 09:00 Lorazepam (Ativan) 0.25 mg PRN Q2HR PRN PO ANXIETY / AGITATION Last administered on 05/24/17t 16:40; Start 05/23/17 at 18:45 Active Scripts Active Reported Glimepiride 2 Mg Tablet 2 Mg PO DAILY Victoza 3-Johan (Liraglutide) 0.6 Mg/0.1 Ml Pen.injctr 1.8 Mg SQ DAILY Amitriptyline Hcl 50 Mg Tablet 50 Mg PO HS Simvastatin 20 Mg Tablet 20 Mg PO HS Donepezil Hcl 10 Mg Tablet 10 Mg PO HS Metformin Hcl 1,000 Mg Tablet 1,000 Mg PO [id number] Quinapril Hcl 20 Mg Tablet 20 Mg PO DAILY Diagnosis: Problems: (1) Dementia (2) Anxiety disorder (3) Dementia in Alzheimer's disease with delusions (4) Dementia in Alzheimer's disease with depression (5) Dementia, vascular, with delusions (6) Dementia, vascular, with depression (7) Impulse control disorder (8) Psychosis, atypical SHAE GRANT MD May 24, 2017 19:51
[2017-05-24] MEDS: DONEPEZIL HCL 10 MG TABLET PO SCH (20:18)
[2017-05-24] MEDS: SIMVASTATIN 20 MG TABLET PO SCH (20:18)
[2017-05-24] MEDS: MIRTAZAPINE 7.5 MG TABLET. PO SCH (20:19)
[2017-05-25 05:51] VITALS: BP 180/90
[2017-05-25] MEDS: LORazepam 0.5 MG TABLET PO PRN (06:41)
--- NOTE | 2017-05-25 07:12 | PN ---
DATE: 05/23/2017 PSYCHIATRIC PROGRESS NOTE This late entry 05/23/2017, covers elements not covered in my initial note of 05/23/2017. SUBJECTIVE: The patient was seen individually evening of 05/23/2017. Per nursing report, the patient did reasonably well morning of 05/23/2017. At around 12:50 p.m., she appeared more confused, wanting to go to the parking lot, agitated after her left the unit, seemed anxious with tachycardia. Dr. Anna did not feel it was related to cardiac issues, but perhaps the anxiety. REVIEW OF SYSTEMS: No CV, , pulmonary, eye, ENT system symptoms on review. MENTAL STATUS EXAM: Oriented to herself. Insight, judgment, recent memory is impaired. Language function intact. Attention span short. Mood and affect remain somewhat anxious, at times labile. LABORATORY DATA: Reviewed. IMPRESSION: Unchanged from initial note. PLAN: Continue psychotropics mentioned in my initial note. Start Ativan 0.25 mg q.2h. p.r.n. anxiety, max 1 mg in 24 hours. MAN Miri GRANT MD DR: HAN/john paul JOB#: [id number] / [id number]
[2017-05-25] MEDS: SERTRALINE 50 MG TABLET. PO SCH (08:04)
[2017-05-25] MEDS: MAGNESIUM OXIDE 400 MG TABLET PO SCH (08:04)
[2017-05-25] MEDS: LISINOPRIL 20 MG TABLET PO SCH ×2 (08:04→20:09)
[2017-05-25] MEDS: metFORMIN 500 MG TABLET PO SCH ×2 (08:04→17:23)
[2017-05-25] MEDS: MINERAL OIL/PETROLATUM TOPICAL CREAM 113GM JAR. TP SCH ×2 (08:05→20:13)
--- NOTE | 2017-05-25 14:52 | RAD ---
CT of the head without contrast, 05/25/2017: History: Altered mental status There is mild cerebral atrophy. A calcification is noted in the left caudate nucleus, likely due to a prior insult. The ventricles are within normal limits in size. There is no shift of the midline structures. There is no evidence of acute intracranial hemorrhage or mass effect. IMPRESSION: 1. Cerebral atrophy. 2. No acute intracranial abnormality is detected. PQRS Compliance Statement: One or more of the following individualized dose reduction techniques were utilized for this examination: 1. Automated exposure control 2. Adjustment of the mA and/or kV according to patient size 3. Use of iterative reconstruction technique
[2017-05-25 16:11] VITALS: BP 156/82
[2017-05-25] MEDS: Liraglutide (Victoza) 1.8 MG SQ SCH (17:23)
--- NOTE | 2017-05-25 19:51 | PDOC ---
Exam Roberto Demential Exam: Roberto Note: Please also refer to the separate dictated note~for this date of service dictated separately.~Patient seen individually. Discussed the patient with Nursing staff reviewed the chart.~Reviewed interim history and current functioning. Reviewed vital signs,~Labs/ Radiology~and current medications noted below. Continue current treatment with the changes noted in the dictated addendum note Assessment: Vital Signs: Vital Signs Date Time Temp Pulse Resp B/P (MAP) Pulse Ox O2 Delivery O2 Flow Rate FiO2 05/25/17 16:11 97.9 105 18 156/82 (106) 99 05/23/17 16:27 Room Air I&O Intake and Output 05/25/17 07:00 Intake Total 960 ml Balance 960 ml Intake Oral 960 ml # Voids 2 Labs: Laboratory Tests Test 05/25/17 07:13 05/25/17 12:04 05/25/17 16:32 05/25/17 19:04 Glucose (Fingerstick) 177 mg/dL (70-99) H 190 mg/dL (70-99) H 205 mg/dL (70-99) H 233 mg/dL (70-99) H Current Medications: Meds: Current Medications Acetaminophen (Tylenol) 650 mg PRN Q6HRS PRN PO PAIN / TEMP; Start 05/20/17 at 02:45 Multi-Ingredient Ointment (Analgesic [place]) 1 renetta PRN QID PRN TP MUSCLE PAIN; Start 05/20/17 at 02:45 Al Hydroxide/Mg Hydroxide (Mylanta Plus Xs) 15 ml PRN AFTMEALHC PRN PO DYSPEPSIA; Start 05/20/17 at 02:45 Magnesium Hydroxide (Milk Of Magnesia) 2,400 mg PRN QHS PRN PO CONSTIPATION; Start 05/20/17 at 02:45 Amitriptyline HCl (Elavil) 50 mg HS PO Last administered on 05/20/17 20:24; Start 05/20/17 at 21:00; Stop 05/21/17 at 20:03; Status DC Donepezil HCl (Aricept) 10 mg HS PO Last administered on 05/24/17 20:18; Start 05/20/17 at 21:00 Simvastatin (Zocor) 20 mg HS PO Last administered on 05/24/17 20:18; Start 09/24 at 21:00 Non-Formulary Medication 1.8 mg DAILY SQ ; Start 05/20/17 at 09:00; Stop at 16:33; Status DC Metformin HCl (Glucophage) 1,000 mg BIDWMEALS PO Last administered on 17:23; Start 05/20/17 at 08:00 Lisinopril (Prinivil) 20 mg DAILY PO Last administered on 05/20/17 08:07; Start 05/20/17 at 09:00; Stop 05/20/17 at 19:28; Status DC Olanzapine (ZyPREXA ZYDIS) 2.5 mg PRN Q2HR PRN PO PSYCHOSIS Last administered on 05/22/17 00:59; Start 05/20/17 at 16:00 Non-Formulary Medication 1.8 mg DAILYWSUP SQ Last administered on 05/25/17 17: 23; Start 05/20/17 at 17:00 Potassium Chloride (Klor-Con) 40 meq 1X ONCE PO Last administered on 20:23; Start 05/20/17 at 20:00; Stop 05/20/17 at 20:01; Status DC Magnesium Oxide (Magnesium Oxide) 400 mg DAILY PO Last administered on 08:04; Start 05/20/17 at 20:00 Lisinopril (Prinivil) 20 mg BID PO Last administered on 05/25/17 08:04; Start 05/20/17 at 21:00 Multi-Ingred Cream/Lotion/Oil/ Oint (Hydrocerin) 1 renetta BID TP Last administered on 05/25/17 08:05; Start 05/21/17 at 09:00 Mirtazapine (Remeron) 7.5 mg QHS PO Last administered on 05/24/17 20:19; Start 05/21/17 at 21:00 Sertraline HCl (Zoloft) 25 mg DAILY PO Last administered on 05/22/17 08:01; Start 05/22/17 at 09:00; Stop 05/22/17 at 19:05; Status DC Sertraline HCl (Zoloft) 50 mg DAILY PO Last administered on 05/25/17 08:04; Start 05/23/17 at 09:00 Lorazepam (Ativan) 0.25 mg PRN Q2HR PRN PO ANXIETY / AGITATION Last administered on 05/25/17t 06:41; Start 05/23/17 at 18:45 Quetiapine Fumarate (SEROquel) 25 mg QHS PO ; Start 05/25/17 at 21:00 Memantine (Namenda) 5 mg BID PO ; Start 05/25/17 at 21:00 Active Scripts Active Reported Glimepiride 2 Mg Tablet 2 Mg PO DAILY Victoza 3-Johan (Liraglutide) 0.6 Mg/0.1 Ml Pen.injctr 1.8 Mg SQ DAILY Amitriptyline Hcl 50 Mg Tablet 50 Mg PO HS Simvastatin 20 Mg Tablet 20 Mg PO HS Donepezil Hcl 10 Mg Tablet 10 Mg PO HS Metformin Hcl 1,000 Mg Tablet 1,000 Mg PO [id number] Quinapril Hcl 20 Mg Tablet 20 Mg PO DAILY Diagnosis: Problems: (1) Dementia (2) Anxiety disorder (3) Dementia in Alzheimer's disease with delusions (4) Dementia in Alzheimer's disease with depression (5) Dementia, vascular, with delusions (6) Dementia, vascular, with depression (7) Impulse control disorder (8) Psychosis, atypical SHAE GRANT MD May 25, 2017 19:51
[2017-05-25] MEDS: MIRTAZAPINE 7.5 MG TABLET. PO SCH (20:09)
[2017-05-25] MEDS: DONEPEZIL HCL 10 MG TABLET PO SCH (20:09)
[2017-05-25] MEDS: SIMVASTATIN 20 MG TABLET PO SCH (20:09)
[2017-05-25] MEDS: QUEtiapine 25 MG TABLET. PO SCH (20:11)
[2017-05-25] MEDS: MEMANTINE 5 MG TABLET. PO SCH (20:11)
--- NOTE | 2017-05-25 23:36 | PN ---
DATE: 05/24/2017 PSYCHIATRIC PROGRESS NOTE This late entry of 05/24/2017, covers elements not covered in my initial note. I met with the patient in the evening of 05/24/2017. Per nursing report, she has been calm, cooperative. Previous evening, she was demanding, confused, talked about having "horrible ." She is unable to give any further details as I addressed this with her, somewhat dismissive. She was aware the year was 2016 and knew it was Monday or Monday. REVIEW OF SYSTEMS: No CV, , pulmonary, eye, ENT system symptoms on review. Reliability varies. MENTAL STATUS EXAM: Oriented to herself. Insight, judgment, recent memory is impaired. Language function intact. Attention span short. Mood and affect somewhat anxious. LABORATORY DATA: Reviewed. IMPRESSION: Unchanged from initial note. PLAN: Continue psychotropics mentioned in my initial note including Aricept, Zoloft, Remeron, along with Zyprexa and Ativan p.r.n. Review drug interactions. Risk/benefit ratio favors no further change as of now. SHAE GRANT MD DR: HAN/john paul JOB#: [id number] / [id number]
[2017-05-26 06:09] VITALS: BP 158/84
[2017-05-26] MEDS: MEMANTINE 5 MG TABLET. PO SCH ×2 (07:59→19:42)
[2017-05-26] MEDS: LISINOPRIL 20 MG TABLET PO SCH ×2 (07:59→19:42)
[2017-05-26] MEDS: metFORMIN 500 MG TABLET PO SCH ×2 (08:00→17:11)
[2017-05-26] MEDS: MAGNESIUM OXIDE 400 MG TABLET PO SCH (08:01)
[2017-05-26] MEDS: SERTRALINE 50 MG TABLET. PO SCH (08:01)
[2017-05-26] MEDS: MINERAL OIL/PETROLATUM TOPICAL CREAM 113GM JAR. TP SCH ×2 (08:02→19:43)
[2017-05-26 16:38] VITALS: BP 134/74
[2017-05-26] MEDS: Liraglutide (Victoza) 1.8 MG SQ SCH (17:11)
[2017-05-26] MEDS: DONEPEZIL HCL 10 MG TABLET PO SCH (19:41)
[2017-05-26] MEDS: QUEtiapine 25 MG TABLET. PO SCH (19:42)
[2017-05-26] MEDS: MIRTAZAPINE 7.5 MG TABLET. PO SCH (19:42)
[2017-05-26] MEDS: SIMVASTATIN 20 MG TABLET PO SCH (19:42)
[2017-05-26] MEDS: METOPROLOL TART IMMED RELEASE 25 MG TABLET PO SCH (19:43)
--- NOTE | 2017-05-26 19:55 | PDOC ---
Exam Roberto Demential Exam: Roberto Note: Please also refer to the separate dictated note~for this date of service dictated separately.~Patient seen individually. Discussed the patient with Nursing staff reviewed the chart.~Reviewed interim history and current functioning. Reviewed vital signs,~Labs/ Radiology~and current medications noted below. Continue current treatment with the changes noted in the dictated addendum note Assessment: Vital Signs: Vital Signs Date Time Temp Pulse Resp B/P (MAP) Pulse Ox O2 Delivery O2 Flow Rate FiO2 05/26/17 19:43 94 134/74 05/26/17 16:38 98.0 18 100 05/23/17 16:27 Room Air I&O Intake and Output 05/26/17 07:00 Intake Total 1440 ml Balance 1440 ml Intake Oral 1440 ml # Voids 1 Labs: Laboratory Tests Test 05/26/17 07:35 05/26/17 11:29 05/26/17 17:08 05/26/17 18:57 Glucose (Fingerstick) 129 mg/dL (70-99) H 147 mg/dL (70-99) H 129 mg/dL (70-99) H 192 mg/dL (70-99) H Current Medications: Meds: Current Medications Acetaminophen (Tylenol) 650 mg PRN Q6HRS PRN PO PAIN / TEMP; Start 05/20/17 at 02:45 Multi-Ingredient Ointment (Analgesic [place]) 1 renetta PRN QID PRN TP MUSCLE PAIN; Start 05/20/17 at 02:45 Al Hydroxide/Mg Hydroxide (Mylanta Plus Xs) 15 ml PRN AFTMEALHC PRN PO DYSPEPSIA; Start 05/20/17 at 02:45 Magnesium Hydroxide (Milk Of Magnesia) 2,400 mg PRN QHS PRN PO CONSTIPATION; Start 05/20/17 at 02:45 Amitriptyline HCl (Elavil) 50 mg HS PO Last administered on 05/20/17 20:24; Start 05/20/17 at 21:00; Stop 05/21/17 at 20:03; Status DC Donepezil HCl (Aricept) 10 mg HS PO Last administered on 05/26/17 19:41; Start 05/20/17 at 21:00 Simvastatin (Zocor) 20 mg HS PO Last administered on 05/26/17 19:42; Start 09/24 at 21:00 Non-Formulary Medication 1.8 mg DAILY SQ ; Start 05/20/17 at 09:00; Stop at 16:33; Status DC Metformin HCl (Glucophage) 1,000 mg BIDWMEALS PO Last administered on 17:11; Start 05/20/17 at 08:00 Lisinopril (Prinivil) 20 mg DAILY PO Last administered on 05/20/17 08:07; Start 05/20/17 at 09:00; Stop 05/20/17 at 19:28; Status DC Olanzapine (ZyPREXA ZYDIS) 2.5 mg PRN Q2HR PRN PO PSYCHOSIS Last administered on 05/22/17 00:59; Start 05/20/17 at 16:00 Non-Formulary Medication 1.8 mg DAILYWSUP SQ Last administered on 05/26/17 17: 11; Start 05/20/17 at 17:00 Potassium Chloride (Klor-Con) 40 meq 1X ONCE PO Last administered on 20:23; Start 05/20/17 at 20:00; Stop 05/20/17 at 20:01; Status DC Magnesium Oxide (Magnesium Oxide) 400 mg DAILY PO Last administered on 08:01; Start 05/20/17 at 20:00 Lisinopril (Prinivil) 20 mg BID PO Last administered on 05/26/17 19:42; Start 05/20/17 at 21:00 Multi-Ingred Cream/Lotion/Oil/ Oint (Hydrocerin) 1 renetta BID TP Last administered on 05/26/17 19:43; Start 05/21/17 at 09:00 Mirtazapine (Remeron) 7.5 mg QHS PO Last administered on 05/26/17 19:42; Start 05/21/17 at 21:00 Sertraline HCl (Zoloft) 25 mg DAILY PO Last administered on 05/22/17 08:01; Start 05/22/17 at 09:00; Stop 05/22/17 at 19:05; Status DC Sertraline HCl (Zoloft) 50 mg DAILY PO Last administered on 05/26/17 08:01; Start 05/23/17 at 09:00 Lorazepam (Ativan) 0.25 mg PRN Q2HR PRN PO ANXIETY / AGITATION Last administered on 05/25/17 06:41; Start 05/23/17 at 18:45 Quetiapine Fumarate (SEROquel) 25 mg QHS PO Last administered on 05/26/17 19: 42; Start 05/25/17 at 21:00 Memantine (Namenda) 5 mg BID PO Last administered on 05/26/17 19:42; Start at 21:00 Metoprolol Tartrate (Lopressor) 25 mg BID PO Last administered on 05/26/17 19: 43; Start 05/26/17 at 21:00 Glimepiride (Amaryl) 2 mg DAILYWBKFT PO ; Start 05/27/17 at 08:00 Quetiapine Fumarate (SEROquel) 12.5 mg DAILY PO ; Start 05/27/17 at 09:00 Active Scripts Active Reported Glimepiride 2 Mg Tablet 2 Mg PO DAILY Victoza 3-Johan (Liraglutide) 0.6 Mg/0.1 Ml Pen.injctr 1.8 Mg SQ DAILY Amitriptyline Hcl 50 Mg Tablet 50 Mg PO HS Simvastatin 20 Mg Tablet 20 Mg PO HS Donepezil Hcl 10 Mg Tablet 10 Mg PO HS Metformin Hcl 1,000 Mg Tablet 1,000 Mg PO [id number] Quinapril Hcl 20 Mg Tablet 20 Mg PO DAILY Diagnosis: Problems: (1) Dementia (2) Anxiety disorder (3) Dementia in Alzheimer's disease with delusions (4) Dementia in Alzheimer's disease with depression (5) Dementia, vascular, with delusions (6) Dementia, vascular, with depression (7) Impulse control disorder (8) Psychosis, atypical SHAE GRANT MD May 26, 2017 19:55
--- NOTE | 2017-05-27 04:01 | PN ---
DATE: 05/25/2017 This is a late entry for 05/25/2017, covers the elements not covered in my initial note of 05/25/2017. SUBJECTIVE: The patient was staffed with treatment team meeting with the entire team morning of 05/25/2017 and her , [place] attended the conference. We reviewed the patient's history, diagnosis, progress, current medications, possible placement options at length. We met with the patient individually evening of 05/25/2017. As I met with her in the evening she was aware, I talked to her in the morning, was quite upset about this, paranoid, suspicious, believing we were telling him things we should not be. She was agitated, tearful the previous evening, irritable in the evening. If CT head has not been done, we will check this. REVIEW OF SYSTEMS: No CV, , pulmonary, eye, ENT system symptoms on review. MENTAL STATUS EXAM: Oriented to herself and situation. Speech is coherent, rapid at times. Attention span short, language function intact. Mood and affect somewhat dysphoric, labile. No active suicidal or homicidal ideation. LABORATORY DATA: Reviewed. IMPRESSION: Unchanged from initial note. PLAN: Start Namenda 5 mg twice a day, Seroquel 25 mg at bedtime. Continue Aricept, Zoloft, Remeron along with Zyprexa and Ativan p.r.n. Reviewed drug interactions, risk/benefit ratio favors no further change at this time. SHAE GRANT MD DR: HAN/john paul JOB#: [id number] / [id number]
[2017-05-27 06:09] VITALS: BP 159/77
[2017-05-27 06:46] LABS: ALBUMIN 3.6 g/dL (3.4-5.0); CALCIUM 8.6 mg/dL (8.5-10.1); CREATININE 0.8 mg/dL (0.6-1.0); GFR 70.1; POTASSIUM 3.7 mmol/L (3.5-5.1); TOTAL BILIRUBIN 0.4 mg/dL (0.2-1.0); TOTAL PROTEIN 7.3 g/dL (6.4-8.2)
[2017-05-27 06:55] LABS: BASO # 0.1 x10^3/uL (0.0-0.2); BASO % 1 % (0-3); EOS # 0.2 x10^3/uL (0.0-0.7); EOS % 3 % (0-3); HEMATOCRIT 39.6 % (36.0-47.0); HEMOGLOBIN 13.3 g/dL (12.0-15.5); LYMPH # 2.3 x10^3/uL (1.0-4.8); LYMPH % 28 % (24-48); MEAN CORPUSCULAR HEMOGLOBIN 29 pg (25-35); MEAN CORPUSCULAR HGB CONC 34 g/dL (31-37); MEAN CORPUSCULAR VOLUME 86 fL (79-100); MONO # 0.5 x10^3/uL (0.0-1.1); MONO % 6 % (0-9); NEUT # 5.2 x10^3uL (1.8-7.7); NEUT % 63 % (31-73); PLATELET COUNT 265 x10^3/uL (140-400); RED CELL DISTRIBUTION WIDTH 14.8 % (11.5-14.5); WHITE BLOOD COUNT 8.3 x10^3/uL (4.0-11.0)
[2017-05-27] MEDS: MAGNESIUM OXIDE 400 MG TABLET PO SCH (07:56)
[2017-05-27] MEDS: METOPROLOL TART IMMED RELEASE 25 MG TABLET PO SCH ×2 (07:57→19:25)
[2017-05-27] MEDS: SERTRALINE 50 MG TABLET. PO SCH (07:58)
[2017-05-27] MEDS: metFORMIN 500 MG TABLET PO SCH ×2 (07:58→17:39)
[2017-05-27] MEDS: MEMANTINE 5 MG TABLET. PO SCH ×2 (07:58→19:25)
[2017-05-27] MEDS: LISINOPRIL 20 MG TABLET PO SCH ×2 (07:58→19:25)
[2017-05-27] MEDS: QUEtiapine 25 MG TABLET. PO SCH ×2 (08:03→19:26)
[2017-05-27] MEDS: GLIMEPIRIDE 2 MG TABLET PO SCH (08:03)
[2017-05-27] MEDS: MINERAL OIL/PETROLATUM TOPICAL CREAM 113GM JAR. TP SCH ×2 (09:00→21:00)
--- NOTE | 2017-05-27 15:36 | EKG ---
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
[2017-05-27 15:49] VITALS: BP 141/76
[2017-05-27] MEDS: Liraglutide (Victoza) 1.8 MG SQ SCH (17:42)
[2017-05-27] MEDS: DONEPEZIL HCL 10 MG TABLET PO SCH (19:25)
[2017-05-27] MEDS: SIMVASTATIN 20 MG TABLET PO SCH (19:26)
[2017-05-27] MEDS: MIRTAZAPINE 7.5 MG TABLET. PO SCH (19:26)
--- NOTE | 2017-05-27 20:24 | PN ---
DATE: 05/27/2017 This late entry 05/26/2017 covers elements not covered in my initial note of 05/26/2017. SUBJECTIVE: I met with the patient evening of 05/26/2016. Morning of 05/26/2017, had been called by social service staff, Sury, that the patient's had called and at the patient's request, he was wanting to discharge. We discussed at length and it will have to be an against medical advice discharge. However, apparently the family decided against this at the end. The patient remains somewhat anxious, restless, somewhat paranoid, questioning why she is here. I discussed with her. REVIEW OF SYSTEMS: No CV, , pulmonary, eye system symptoms on review. MENTAL STATUS EXAM: Oriented to herself and situation. Speech coherent, much more pleasant as compared to yesterday, abstraction fair, computation impaired, language function intact, attention span short. Mood and affect remains anxious, labile, but slight improvement in pressure unchanged from initial note. PLAN: Add Seroquel 12.5 mg at 9:00 a.m. Review drug interactions, risk/benefit ratio, favors no further change at this time. Continue Seroquel 25 at bedtime, Namenda, Remeron, Aricept, Zoloft, Zyprexa and Ativan p.r.n. MAN Miri GRANT MD DR: HAN/john paul JOB#: [id number] / [id number]
--- NOTE | 2017-05-27 23:20 | PDOC ---
Exam Roberto Demential Exam: Roberto Note: Please also refer to the separate dictated note~for this date of service dictated separately.~Patient seen individually. Discussed the patient with Nursing staff reviewed the chart.~Reviewed interim history and current functioning. Reviewed vital signs,~Labs/ Radiology~and current medications noted below. Continue current treatment with the changes noted in the dictated addendum note Assessment: Vital Signs: Vital Signs Date Time Temp Pulse Resp B/P (MAP) Pulse Ox O2 Delivery O2 Flow Rate FiO2 05/27/17 19:25 79 141/76 05/27/17 15:49 97.9 20 95 05/27/17 06:09 Room Air I&O Intake and Output 05/27/17 07:00 Intake Total 1140 ml Balance 1140 ml Intake Oral 1140 ml Labs: Laboratory Tests Test 05/27/17 06:15 05/27/17 07:09 05/27/17 11:38 05/27/17 16:54 White Blood Count 8.3 x10^3/uL (4.0-11.0) Red Blood Count 4.60 x10^6/uL (3.50-5.40) Hemoglobin 13.3 g/dL (12.0-15.5) Hematocrit 39.6 % (36.0-47.0) Mean Corpuscular Volume 86 fL (79-100) Mean Corpuscular Hemoglobin 29 pg (25-35) Mean Corpuscular Hemoglobin Concent 34 g/dL (31-37) Red Cell Distribution Width 14.8 % (11.5-14.5) H Platelet Count 265 x10^3/uL (140-400) Neutrophils (%) (Auto) 63 % (31-73) Lymphocytes (%) (Auto) 28 % (24-48) Monocytes (%) (Auto) 6 % (0-9) Eosinophils (%) (Auto) 3 % (0-3) Basophils (%) (Auto) 1 % (0-3) Neutrophils # (Auto) 5.2 x10^3uL (1.8-7.7) Lymphocytes # (Auto) 2.3 x10^3/uL (1.0-4.8) Monocytes # (Auto) 0.5 x10^3/uL (0.0-1.1) Eosinophils # (Auto) 0.2 x10^3/uL (0.0-0.7) Basophils # (Auto) 0.1 x10^3/uL (0.0-0.2) Sodium Level 141 mmol/L (136-145) Potassium Level 3.7 mmol/L (3.5-5.1) Chloride Level 103 mmol/L (98-107) Carbon Dioxide Level 29 mmol/L (21-32) Anion Gap 9 (6-14) Blood Urea Nitrogen 15 mg/dL (7-20) Creatinine 0.8 mg/dL (0.6-1.0) Estimated GFR (Cockcroft-Gault) 70.1 BUN/Creatinine Ratio 19 (6-20) Glucose Level 175 mg/dL (70-99) H Calcium Level 8.6 mg/dL (8.5-10.1) Total Bilirubin 0.4 mg/dL (0.2-1.0) Aspartate Amino Transferase (AST) 23 U/L (15-37) Alanine Aminotransferase (ALT) 22 U/L (14-59) Alkaline Phosphatase 68 U/L (46-116) Total Protein 7.3 g/dL (6.4-8.2) Albumin 3.6 g/dL (3.4-5.0) Albumin/Globulin Ratio 1.0 (1.0-1.7) Glucose (Fingerstick) 148 mg/dL (70-99) H 119 mg/dL (70-99) H 98 mg/dL (70-99) Test 05/27/17 19:03 Glucose (Fingerstick) 150 mg/dL (70-99) H Current Medications: Meds: Current Medications Acetaminophen (Tylenol) 650 mg PRN Q6HRS PRN PO PAIN / TEMP; Start 05/20/17 at 02:45 Multi-Ingredient Ointment (Analgesic [place]) 1 renetta PRN QID PRN TP MUSCLE PAIN; Start 05/20/17 at 02:45 Al Hydroxide/Mg Hydroxide (Mylanta Plus Xs) 15 ml PRN AFTMEALHC PRN PO DYSPEPSIA; Start 05/20/17 at 02:45 Magnesium Hydroxide (Milk Of Magnesia) 2,400 mg PRN QHS PRN PO CONSTIPATION; Start 05/20/17 at 02:45 Amitriptyline HCl (Elavil) 50 mg HS PO Last administered on 05/20/17 20:24; Start 05/20/17 at 21:00; Stop 05/21/17 at 20:03; Status DC Donepezil HCl (Aricept) 10 mg HS PO Last administered on 05/27/17 19:25; Start 05/20/17 at 21:00 Simvastatin (Zocor) 20 mg HS PO Last administered on 05/27/17 19:26; Start 09/24 at 21:00 Non-Formulary Medication 1.8 mg DAILY SQ ; Start 05/20/17 at 09:00; Stop at 16:33; Status DC Metformin HCl (Glucophage) 1,000 mg BIDWMEALS PO Last administered on 17:39; Start 05/20/17 at 08:00 Lisinopril (Prinivil) 20 mg DAILY PO Last administered on 05/20/17 08:07; Start 05/20/17 at 09:00; Stop 05/20/17 at 19:28; Status DC Olanzapine (ZyPREXA ZYDIS) 2.5 mg PRN Q2HR PRN PO PSYCHOSIS Last administered on 05/27/17 03:27; Start 05/20/17 at 16:00 Non-Formulary Medication 1.8 mg DAILYWSUP SQ Last administered on 05/27/17 17: 42; Start 05/20/17 at 17:00 Potassium Chloride (Klor-Con) 40 meq 1X ONCE PO Last administered on 20:23; Start 05/20/17 at 20:00; Stop 05/20/17 at 20:01; Status DC Magnesium Oxide (Magnesium Oxide) 400 mg DAILY PO Last administered on 07:56; Start 05/20/17 at 20:00 Lisinopril (Prinivil) 20 mg BID PO Last administered on 05/27/17 19:25; Start 05/20/17 at 21:00 Multi-Ingred Cream/Lotion/Oil/ Oint (Hydrocerin) 1 renetta BID TP Last administered on 05/27/17 21:00; Start 05/21/17 at 09:00 Mirtazapine (Remeron) 7.5 mg QHS PO Last administered on 05/27/17 19:26; Start 05/21/17 at 21:00 Sertraline HCl (Zoloft) 25 mg DAILY PO Last administered on 05/22/17 08:01; Start 05/22/17 at 09:00; Stop 05/22/17 at 19:05; Status DC Sertraline HCl (Zoloft) 50 mg DAILY PO Last administered on 05/27/17 07:58; Start 05/23/17 at 09:00 Lorazepam (Ativan) 0.25 mg PRN Q2HR PRN PO ANXIETY / AGITATION Last administered on 05/25/17 06:41; Start 05/23/17 at 18:45 Quetiapine Fumarate (SEROquel) 25 mg QHS PO Last administered on 05/27/17 19: 26; Start 05/25/17 at 21:00 Memantine (Namenda) 5 mg BID PO Last administered on 05/27/17 19:25; Start at 21:00 Metoprolol Tartrate (Lopressor) 25 mg BID PO Last administered on 05/27/17 19: 25; Start 05/26/17 at 21:00 Glimepiride (Amaryl) 2 mg DAILYWBKFT PO Last administered on 05/27/17 08:03; Start 05/27/17 at 08:00 Quetiapine Fumarate (SEROquel) 12.5 mg DAILY PO Last administered on 05/27/17 08:03; Start 05/27/17 at 09:00 Active Scripts Active Reported Glimepiride 2 Mg Tablet 2 Mg PO DAILY Victoza 3-Johan (Liraglutide) 0.6 Mg/0.1 Ml Pen.injctr 1.8 Mg SQ DAILY Amitriptyline Hcl 50 Mg Tablet 50 Mg PO HS Simvastatin 20 Mg Tablet 20 Mg PO HS Donepezil Hcl 10 Mg Tablet 10 Mg PO HS Metformin Hcl 1,000 Mg Tablet 1,000 Mg PO [id number] Quinapril Hcl 20 Mg Tablet 20 Mg PO DAILY Diagnosis: Problems: (1) Dementia (2) Anxiety disorder (3) Dementia in Alzheimer's disease with delusions (4) Dementia in Alzheimer's disease with depression (5) Dementia, vascular, with delusions (6) Dementia, vascular, with depression (7) Impulse control disorder (8) Psychosis, atypical SHAE GRANT MD May 27, 2017 23:20
[2017-05-28] MEDS: LORazepam 0.5 MG TABLET PO PRN (04:38)
[2017-05-28 05:41] VITALS: BP 166/68
[2017-05-28] MEDS: METOPROLOL TART IMMED RELEASE 25 MG TABLET PO SCH ×2 (08:00→19:38)
[2017-05-28] MEDS: SERTRALINE 50 MG TABLET. PO SCH (08:00)
[2017-05-28] MEDS: GLIMEPIRIDE 2 MG TABLET PO SCH (08:00)
[2017-05-28] MEDS: LISINOPRIL 20 MG TABLET PO SCH ×2 (08:01→19:38)
[2017-05-28] MEDS: QUEtiapine 25 MG TABLET. PO SCH ×2 (08:01→19:32)
[2017-05-28] MEDS: MAGNESIUM OXIDE 400 MG TABLET PO SCH (08:01)
[2017-05-28] MEDS: MEMANTINE 5 MG TABLET. PO SCH (08:01)
[2017-05-28] MEDS: metFORMIN 500 MG TABLET PO SCH ×2 (08:04→17:11)
[2017-05-28] MEDS: MINERAL OIL/PETROLATUM TOPICAL CREAM 113GM JAR. TP SCH ×2 (09:00→21:42)
[2017-05-28 16:17] VITALS: BP 90/51
[2017-05-28] MEDS: Liraglutide (Victoza) 1.8 MG SQ SCH (17:11)
[2017-05-28] MEDS ORDERED: traZODone 50 MG TABLET. PO PRN (19:30)
[2017-05-28] MEDS: DONEPEZIL HCL 10 MG TABLET PO SCH (19:32)
[2017-05-28] MEDS: SIMVASTATIN 20 MG TABLET PO SCH (19:32)
[2017-05-28] MEDS: MIRTAZAPINE 7.5 MG TABLET. PO SCH (19:34)
[2017-05-28] MEDS: MEMANTINE 10 MG TABLET. PO SCH (19:37)
[2017-05-28] MEDS: traZODone 50 MG TABLET. PO SCH (19:37)
--- NOTE | 2017-05-28 19:50 | PDOC ---
Exam Roberto Demential Exam: Roberto Note: Please also refer to the separate dictated note~for this date of service dictated separately.~Patient seen individually. Discussed the patient with Nursing staff reviewed the chart.~Reviewed interim history and current functioning. Reviewed vital signs,~Labs/ Radiology~and current medications noted below. Continue current treatment with the changes noted in the dictated addendum note Assessment: Vital Signs: Vital Signs Date Time Temp Pulse Resp B/P (MAP) Pulse Ox O2 Delivery O2 Flow Rate FiO2 05/28/17 19:38 92 140/71 05/28/17 16:17 99.3 20 97 Room Air I&O Intake and Output 05/28/17 07:00 Intake Total 1080 ml Balance 1080 ml Intake Oral 1080 ml Labs: Laboratory Tests Test 05/28/17 07:14 05/28/17 11:42 05/28/17 16:56 05/28/17 19:32 Glucose (Fingerstick) 116 mg/dL (70-99) H 73 mg/dL (70-99) 77 mg/dL (70-99) 158 mg/dL (70-99) H Current Medications: Meds: Current Medications Acetaminophen (Tylenol) 650 mg PRN Q6HRS PRN PO PAIN / TEMP; Start 05/20/17 at 02:45 Multi-Ingredient Ointment (Analgesic [place]) 1 renetta PRN QID PRN TP MUSCLE PAIN; Start 05/20/17 at 02:45 Al Hydroxide/Mg Hydroxide (Mylanta Plus Xs) 15 ml PRN AFTMEALHC PRN PO DYSPEPSIA; Start 05/20/17 at 02:45 Magnesium Hydroxide (Milk Of Magnesia) 2,400 mg PRN QHS PRN PO CONSTIPATION; Start 05/20/17 at 02:45 Amitriptyline HCl (Elavil) 50 mg HS PO Last administered on 05/20/17 20:24; Start 05/20/17 at 21:00; Stop 05/21/17 at 20:03; Status DC Donepezil HCl (Aricept) 10 mg HS PO Last administered on 05/28/17 19:32; Start 05/20/17 at 21:00 Simvastatin (Zocor) 20 mg HS PO Last administered on 05/28/17 19:32; Start 09/24 at 21:00 Non-Formulary Medication 1.8 mg DAILY SQ ; Start 05/20/17 at 09:00; Stop at 16:33; Status DC Metformin HCl (Glucophage) 1,000 mg BIDWMEALS PO Last administered on 17:11; Start 05/20/17 at 08:00 Lisinopril (Prinivil) 20 mg DAILY PO Last administered on 05/20/17 08:07; Start 05/20/17 at 09:00; Stop 05/20/17 at 19:28; Status DC Olanzapine (ZyPREXA ZYDIS) 2.5 mg PRN Q2HR PRN PO PSYCHOSIS Last administered on 05/27/17 03:27; Start 05/20/17 at 16:00 Non-Formulary Medication 1.8 mg DAILYWSUP SQ Last administered on 05/28/17 17: 11; Start 05/20/17 at 17:00 Potassium Chloride (Klor-Con) 40 meq 1X ONCE PO Last administered on 20:23; Start 05/20/17 at 20:00; Stop 05/20/17 at 20:01; Status DC Magnesium Oxide (Magnesium Oxide) 400 mg DAILY PO Last administered on 08:01; Start 05/20/17 at 20:00 Lisinopril (Prinivil) 20 mg BID PO Last administered on 05/28/17 19:38; Start 05/20/17 at 21:00 Multi-Ingred Cream/Lotion/Oil/ Oint (Hydrocerin) 1 renetta BID TP Last administered on 05/28/17 09:00; Start 05/21/17 at 09:00 Mirtazapine (Remeron) 7.5 mg QHS PO Last administered on 05/28/17 19:34; Start 05/21/17 at 21:00 Sertraline HCl (Zoloft) 25 mg DAILY PO Last administered on 05/22/17 08:01; Start 05/22/17 at 09:00; Stop 05/22/17 at 19:05; Status DC Sertraline HCl (Zoloft) 50 mg DAILY PO Last administered on 05/28/17 08:00; Start 05/23/17 at 09:00 Lorazepam (Ativan) 0.25 mg PRN Q2HR PRN PO ANXIETY / AGITATION Last administered on 05/28/17 04:38; Start 05/23/17 at 18:45 Quetiapine Fumarate (SEROquel) 25 mg QHS PO Last administered on 05/28/17 19: 32; Start 05/25/17 at 21:00 Memantine (Namenda) 5 mg BID PO Last administered on 05/28/17 08:01; Start at 21:00; Stop 05/28/17 at 19:26; Status DC Metoprolol Tartrate (Lopressor) 25 mg BID PO Last administered on 05/28/17 19: 38; Start 05/26/17 at 21:00 Glimepiride (Amaryl) 2 mg DAILYWBKFT PO Last administered on 05/28/17 08:00; Start 05/27/17 at 08:00 Quetiapine Fumarate (SEROquel) 12.5 mg DAILY PO Last administered on 05/28/17 08:01; Start 05/27/17 at 09:00 Memantine (Namenda) 10 mg BID PO Last administered on 05/28/17 19:37; Start at 21:00 Trazodone HCl (Desyrel) 50 mg QHS PO Last administered on 05/28/17 19:37; Start 05/28/17 at 21:00 Trazodone HCl (Desyrel) 50 mg PRN QHS PRN PO SLEEP; Start 05/28/17 at 19:30 Active Scripts Active Reported Glimepiride 2 Mg Tablet 2 Mg PO DAILY Victoza 3-Johan (Liraglutide) 0.6 Mg/0.1 Ml Pen.injctr 1.8 Mg SQ DAILY Amitriptyline Hcl 50 Mg Tablet 50 Mg PO HS Simvastatin 20 Mg Tablet 20 Mg PO HS Donepezil Hcl 10 Mg Tablet 10 Mg PO HS Metformin Hcl 1,000 Mg Tablet 1,000 Mg PO [id number] Quinapril Hcl 20 Mg Tablet 20 Mg PO DAILY Diagnosis: Problems: (1) Dementia (2) Anxiety disorder (3) Dementia in Alzheimer's disease with delusions (4) Dementia in Alzheimer's disease with depression (5) Dementia, vascular, with delusions (6) Dementia, vascular, with depression (7) Impulse control disorder (8) Psychosis, atypical JUANITA,MAN M MD May 28, 2017 19:50
--- NOTE | 2017-05-28 23:39 | PN ---
DATE: 05/27/2017 PSYCHIATRIC PROGRESS NOTE This is a late entry of 05/27/2017 covers elements not covered in my initial note of 05/17/2017. SUBJECTIVE: The patient was seen individually evening of 05/27/2017. Per nursing report short-term memory is very poor. Minimizes the deficits get irritable, angry, labile this was addressed with her. REVIEW OF SYSTEMS: No CV, , pulmonary, eye, ENT system symptoms on review. Reliability poor. MENTAL STATUS EXAM: Oriented to herself and situation. Speech coherent, rapid at times. Abstraction fair, computation impaired, language function intact, attention span short. Mood and affect remain anxious, labile. LABORATORY DATA: Reviewed. IMPRESSION: Unchanged from initial note. PLAN: Seroquel is at 12.5 mg daily, 25 mg at bedtime. We will increase to 12.5 mg in the morning and 25 mg at noon and night. Continue Namenda, but we will increase it to 10 b.i.d. Continue Zoloft 50 mg a day, Remeron 7.5 mg at bedtime, Aricept 10 mg a day. Adjust further as clinically indicated. MAN Miri GRANT MD DR: HAN/john paul JOB#: [id number] / [id number]
[2017-05-29 06:09] VITALS: BP 158/77
[2017-05-29] MEDS: METOPROLOL TART IMMED RELEASE 25 MG TABLET PO SCH ×2 (08:24→19:54)
[2017-05-29] MEDS: metFORMIN 500 MG TABLET PO SCH ×3 (08:24→19:50)
[2017-05-29] MEDS: MAGNESIUM OXIDE 400 MG TABLET PO SCH (08:24)
[2017-05-29] MEDS: SERTRALINE 50 MG TABLET. PO SCH (08:24)
[2017-05-29] MEDS: GLIMEPIRIDE 2 MG TABLET PO SCH (08:24)
[2017-05-29] MEDS: QUEtiapine 25 MG TABLET. PO SCH ×3 (08:25→19:50)
[2017-05-29] MEDS: MEMANTINE 10 MG TABLET. PO SCH ×2 (08:25→19:50)
[2017-05-29] MEDS: LISINOPRIL 20 MG TABLET PO SCH ×2 (08:25→19:56)
[2017-05-29] MEDS: MINERAL OIL/PETROLATUM TOPICAL CREAM 113GM JAR. TP SCH ×2 (10:34→22:17)
[2017-05-29] MEDS ORDERED: QUEtiapine 25 MG TABLET. PO SCH ×2 (12:00)
[2017-05-29 16:04] VITALS: BP 116/55
[2017-05-29] MEDS: Liraglutide (Victoza) 1.8 MG SQ SCH (17:12)
[2017-05-29] MEDS: traZODone 50 MG TABLET. PO SCH (19:48)
--- NOTE | 2017-05-29 19:49 | PDOC ---
Exam Roberto Demential Exam: Roberto Note: Please also refer to the separate dictated note~for this date of service dictated separately.~Patient seen individually. Discussed the patient with Nursing staff reviewed the chart.~Reviewed interim history and current functioning. Reviewed vital signs,~Labs/ Radiology~and current medications noted below. Continue current treatment with the changes noted in the dictated addendum note Assessment: Vital Signs: Vital Signs Date Time Temp Pulse Resp B/P (MAP) Pulse Ox O2 Delivery O2 Flow Rate FiO2 05/29/17 16:04 98.3 81 18 116/55 (75) 98 05/28/17 16:17 Room Air I&O Intake and Output 05/29/17 06:59 Intake Total 1020 ml Balance 1020 ml Intake Oral 1020 ml Labs: Laboratory Tests Test 05/29/17 08:04 05/29/17 11:23 05/29/17 17:12 05/29/17 19:27 Glucose (Fingerstick) 108 mg/dL (70-99) H 119 mg/dL (70-99) H 89 mg/dL (70-99) 136 mg/dL (70-99) H Current Medications: Meds: Current Medications Acetaminophen (Tylenol) 650 mg PRN Q6HRS PRN PO PAIN / TEMP; Start 05/20/17 at 02:45 Multi-Ingredient Ointment (Analgesic [place]) 1 renetta PRN QID PRN TP MUSCLE PAIN; Start 05/20/17 at 02:45 Al Hydroxide/Mg Hydroxide (Mylanta Plus Xs) 15 ml PRN AFTMEALHC PRN PO DYSPEPSIA; Start 05/20/17 at 02:45 Magnesium Hydroxide (Milk Of Magnesia) 2,400 mg PRN QHS PRN PO CONSTIPATION; Start 05/20/17 at 02:45 Amitriptyline HCl (Elavil) 50 mg HS PO Last administered on 05/20/17 20:24; Start 05/20/17 at 21:00; Stop 05/21/17 at 20:03; Status DC Donepezil HCl (Aricept) 10 mg HS PO Last administered on 05/28/17 19:32; Start 05/20/17 at 21:00 Simvastatin (Zocor) 20 mg HS PO Last administered on 05/28/17 19:32; Start 09/24 at 21:00 Non-Formulary Medication 1.8 mg DAILY SQ ; Start 05/20/17 at 09:00; Stop at 16:33; Status DC Metformin HCl (Glucophage) 1,000 mg BIDWMEALS PO Last administered on 17:12; Start 05/20/17 at 08:00 Lisinopril (Prinivil) 20 mg DAILY PO Last administered on 05/20/17 08:07; Start 05/20/17 at 09:00; Stop 05/20/17 at 19:28; Status DC Olanzapine (ZyPREXA ZYDIS) 2.5 mg PRN Q2HR PRN PO PSYCHOSIS Last administered on 05/27/17 03:27; Start 05/20/17 at 16:00 Non-Formulary Medication 1.8 mg DAILYWSUP SQ Last administered on 05/29/17 17: 12; Start 05/20/17 at 17:00 Potassium Chloride (Klor-Con) 40 meq 1X ONCE PO Last administered on 20:23; Start 05/20/17 at 20:00; Stop 05/20/17 at 20:01; Status DC Magnesium Oxide (Magnesium Oxide) 400 mg DAILY PO Last administered on 08:24; Start 05/20/17 at 20:00 Lisinopril (Prinivil) 20 mg BID PO Last administered on 05/29/17 08:25; Start 05/20/17 at 21:00 Multi-Ingred Cream/Lotion/Oil/ Oint (Hydrocerin) 1 renetta BID TP Last administered on 05/29/17 10:34; Start 05/21/17 at 09:00 Mirtazapine (Remeron) 7.5 mg QHS PO Last administered on 05/28/17 19:34; Start 05/21/17 at 21:00 Sertraline HCl (Zoloft) 25 mg DAILY PO Last administered on 05/22/17 08:01; Start 05/22/17 at 09:00; Stop 05/22/17 at 19:05; Status DC Sertraline HCl (Zoloft) 50 mg DAILY PO Last administered on 05/29/17 08:24; Start 05/23/17 at 09:00 Lorazepam (Ativan) 0.25 mg PRN Q2HR PRN PO ANXIETY / AGITATION Last administered on 05/28/17 04:38; Start 05/23/17 at 18:45 Quetiapine Fumarate (SEROquel) 25 mg QHS PO Last administered on 05/28/17 19: 32; Start 05/25/17 at 21:00; Stop 05/29/17 at 00:38; Status DC Memantine (Namenda) 5 mg BID PO Last administered on 05/28/17 08:01; Start at 21:00; Stop 05/28/17 at 19:26; Status DC Metoprolol Tartrate (Lopressor) 25 mg BID PO Last administered on 05/29/17 08: 24; Start 05/26/17 at 21:00 Glimepiride (Amaryl) 2 mg DAILYWBKFT PO Last administered on 05/29/17 08:24; Start 05/27/17 at 08:00 Quetiapine Fumarate (SEROquel) 12.5 mg DAILY PO Last administered on 05/29/17 08:25; Start 05/27/17 at 09:00 Memantine (Namenda) 10 mg BID PO Last administered on 05/29/17 08:25; Start at 21:00 Trazodone HCl (Desyrel) 50 mg QHS PO Last administered on 05/28/17 19:37; Start 05/28/17 at 21:00 Trazodone HCl (Desyrel) 50 mg PRN QHS PRN PO SLEEP; Start 05/28/17 at 19:30 Quetiapine Fumarate (SEROquel) 25 mg AFTRNOON PO ; Start 05/29/17 at 12:00; Stop 05/29/17 at 12:00; Status DC Quetiapine Fumarate (SEROquel) 25 mg NOON PO ; Start 05/29/17 at 12:00; Stop at 12:00; Status DC Quetiapine Fumarate (SEROquel) 25 mg BID@1200,2100 PO Last administered on 05/29 11:43; Start 05/29/17 at 12:00 Active Scripts Active Reported Glimepiride 2 Mg Tablet 2 Mg PO DAILY Victoza 3-Johan (Liraglutide) 0.6 Mg/0.1 Ml Pen.injctr 1.8 Mg SQ DAILY Amitriptyline Hcl 50 Mg Tablet 50 Mg PO HS Simvastatin 20 Mg Tablet 20 Mg PO HS Donepezil Hcl 10 Mg Tablet 10 Mg PO HS Metformin Hcl 1,000 Mg Tablet 1,000 Mg PO [id number] Quinapril Hcl 20 Mg Tablet 20 Mg PO DAILY Diagnosis: Problems: (1) Dementia (2) Anxiety disorder (3) Dementia in Alzheimer's disease with delusions (4) Dementia in Alzheimer's disease with depression (5) Dementia, vascular, with delusions (6) Dementia, vascular, with depression (7) Impulse control disorder (8) Psychosis, atypical SHAE GRANT MD May 29, 2017 19:49
[2017-05-29] MEDS: DONEPEZIL HCL 10 MG TABLET PO SCH (19:50)
[2017-05-29] MEDS: MIRTAZAPINE 7.5 MG TABLET. PO SCH (19:50)
[2017-05-29] MEDS: SIMVASTATIN 20 MG TABLET PO SCH (19:50)
--- NOTE | 2017-05-30 00:04 | PN ---
DATE: 05/28/2017 PSYCHIATRIC PROGRESS NOTE This is a late entry of 05/28/2017 covers elements not covered in my initial note of 05/28/2017. SUBJECTIVE: I met with the patient the evening of 05/28/2017. She has been demanding, yelling at another demented patient, somewhat paranoid, believes someone is stealing her brush. She recognizes these are locked in her room, but still paranoid about it. She believes her is mean. She was up at 3:00 a.m. the previous evening and we will add trazodone 50 mg at bedtime may repeat x 1 for insomnia. REVIEW OF SYSTEMS: No CV, , pulmonary, eye, ENT system symptoms on review. MENTAL STATUS EXAM: Oriented to herself. Insight, judgment, recent memory is impaired. Language function intact. Attention span short. Mood and affect still somewhat anxious, labile. LABORATORY DATA: Reviewed. No active suicidal or homicidal ideation. IMPRESSION: Unchanged from initial note. PLAN: Continue current psychotropics. Increase Namenda to 10 mg twice a day. Maintain the rest unchanged. MAN Miri GRANT MD DR: HAN/john paul JOB#: [id number] / [id number]
[2017-05-30 05:53] VITALS: BP 145/78
[2017-05-30] MEDS: METOPROLOL TART IMMED RELEASE 25 MG TABLET PO SCH ×2 (08:16→20:10)
[2017-05-30] MEDS: LISINOPRIL 20 MG TABLET PO SCH ×2 (08:17→20:09)
[2017-05-30] MEDS: metFORMIN 500 MG TABLET PO SCH (08:17)
[2017-05-30] MEDS: SERTRALINE 50 MG TABLET. PO SCH (08:17)
[2017-05-30] MEDS: GLIMEPIRIDE 2 MG TABLET PO SCH (08:17)
[2017-05-30] MEDS: QUEtiapine 25 MG TABLET. PO SCH ×3 (08:17→20:12)
[2017-05-30] MEDS: MAGNESIUM OXIDE 400 MG TABLET PO SCH (08:18)
[2017-05-30] MEDS: MINERAL OIL/PETROLATUM TOPICAL CREAM 113GM JAR. TP SCH ×2 (08:18→20:13)
[2017-05-30] MEDS: MEMANTINE 10 MG TABLET. PO SCH ×2 (08:18→20:08)
[2017-05-30 16:06] VITALS: BP 94/55
[2017-05-30] MEDS ORDERED: metFORMIN 500 MG TABLET PO ONE (17:00)
[2017-05-30] MEDS: Liraglutide (Victoza) 1.8 MG SQ SCH (17:25)
--- NOTE | 2017-05-30 18:45 | PDOC ---
Exam Roberto Demential Exam: Roberto Note: Please also refer to the separate dictated note~for this date of service dictated separately.~Patient seen individually. Discussed the patient with Nursing staff reviewed the chart.~Reviewed interim history and current functioning. Reviewed vital signs,~Labs/ Radiology~and current medications noted below. Continue current treatment with the changes noted in the dictated addendum note Assessment: Vital Signs: Vital Signs Date Time Temp Pulse Resp B/P (MAP) Pulse Ox O2 Delivery O2 Flow Rate FiO2 05/30/17 16:06 98.1 79 18 94/55 (68) 96 05/30/17 05:53 Room Air I&O Intake and Output 05/30/17 07:00 Intake Total 1080 ml Balance 1080 ml Intake Oral 1080 ml Labs: Laboratory Tests Test 05/29/17 19:27 05/30/17 07:15 05/30/17 11:03 05/30/17 16:43 Glucose (Fingerstick) 136 mg/dL (70-99) H 76 mg/dL (70-99) 110 mg/dL (70-99) H 76 mg/dL (70-99) Current Medications: Meds: Current Medications Acetaminophen (Tylenol) 650 mg PRN Q6HRS PRN PO PAIN / TEMP; Start 05/20/17 at 02:45 Multi-Ingredient Ointment (Analgesic [place]) 1 renetta PRN QID PRN TP MUSCLE PAIN; Start 05/20/17 at 02:45 Al Hydroxide/Mg Hydroxide (Mylanta Plus Xs) 15 ml PRN AFTMEALHC PRN PO DYSPEPSIA; Start 05/20/17 at 02:45 Magnesium Hydroxide (Milk Of Magnesia) 2,400 mg PRN QHS PRN PO CONSTIPATION; Start 05/20/17 at 02:45 Amitriptyline HCl (Elavil) 50 mg HS PO Last administered on 05/20/17 20:24; Start 05/20/17 at 21:00; Stop 05/21/17 at 20:03; Status DC Donepezil HCl (Aricept) 10 mg HS PO Last administered on 05/29/17 19:50; Start 05/20/17 at 21:00 Simvastatin (Zocor) 20 mg HS PO Last administered on 05/29/17 19:50; Start 09/24 at 21:00 Non-Formulary Medication 1.8 mg DAILY SQ ; Start 05/20/17 at 09:00; Stop at 16:33; Status DC Metformin HCl (Glucophage) 1,000 mg BIDWMEALS PO Last administered on 08:17; Start 05/20/17 at 08:00 Lisinopril (Prinivil) 20 mg DAILY PO Last administered on 05/20/17 08:07; Start 05/20/17 at 09:00; Stop 05/20/17 at 19:28; Status DC Olanzapine (ZyPREXA ZYDIS) 2.5 mg PRN Q2HR PRN PO PSYCHOSIS Last administered on 05/27/17 03:27; Start 05/20/17 at 16:00 Non-Formulary Medication 1.8 mg DAILYWSUP SQ Last administered on 05/30/17 17: 25; Start 05/20/17 at 17:00 Potassium Chloride (Klor-Con) 40 meq 1X ONCE PO Last administered on 20:23; Start 05/20/17 at 20:00; Stop 05/20/17 at 20:01; Status DC Magnesium Oxide (Magnesium Oxide) 400 mg DAILY PO Last administered on 08:18; Start 05/20/17 at 20:00 Lisinopril (Prinivil) 20 mg BID PO Last administered on 05/30/17 08:17; Start 05/20/17 at 21:00 Multi-Ingred Cream/Lotion/Oil/ Oint (Hydrocerin) 1 renetta BID TP Last administered on 05/30/17 08:18; Start 05/21/17 at 09:00 Mirtazapine (Remeron) 7.5 mg QHS PO Last administered on 05/29/17 19:50; Start 05/21/17 at 21:00 Sertraline HCl (Zoloft) 25 mg DAILY PO Last administered on 05/22/17 08:01; Start 05/22/17 at 09:00; Stop 05/22/17 at 19:05; Status DC Sertraline HCl (Zoloft) 50 mg DAILY PO Last administered on 05/30/17 08:17; Start 05/23/17 at 09:00 Lorazepam (Ativan) 0.25 mg PRN Q2HR PRN PO ANXIETY / AGITATION Last administered on 05/28/17 04:38; Start 05/23/17 at 18:45 Quetiapine Fumarate (SEROquel) 25 mg QHS PO Last administered on 05/28/17 19: 32; Start 05/25/17 at 21:00; Stop 05/29/17 at 00:38; Status DC Memantine (Namenda) 5 mg BID PO Last administered on 05/28/17 08:01; Start at 21:00; Stop 05/28/17 at 19:26; Status DC Metoprolol Tartrate (Lopressor) 25 mg BID PO Last administered on 05/30/17 08: 16; Start 05/26/17 at 21:00 Glimepiride (Amaryl) 2 mg DAILYWBKFT PO Last administered on 05/30/17 08:17; Start 05/27/17 at 08:00 Quetiapine Fumarate (SEROquel) 12.5 mg DAILY PO Last administered on 05/30/17 08:17; Start 05/27/17 at 09:00; Stop 05/30/17 at 17:04; Status DC Memantine (Namenda) 10 mg BID PO Last administered on 05/30/17 08:18; Start at 21:00 Trazodone HCl (Desyrel) 50 mg QHS PO Last administered on 05/29/17 19:48; Start 05/28/17 at 21:00 Trazodone HCl (Desyrel) 50 mg PRN QHS PRN PO SLEEP; Start 05/28/17 at 19:30 Quetiapine Fumarate (SEROquel) 25 mg AFTRNOON PO ; Start 05/29/17 at 12:00; Stop 05/29/17 at 12:00; Status DC Quetiapine Fumarate (SEROquel) 25 mg NOON PO ; Start 05/29/17 at 12:00; Stop at 12:00; Status DC Quetiapine Fumarate (SEROquel) 25 mg BID@1200,2100 PO Last administered on 05/30 12:17; Start 05/29/17 at 12:00 Metformin HCl (Glucophage) 1,000 mg 1X ONCE PO Last administered on 05/30/17t 17:25; Start 05/30/17 at 17:00; Stop 05/30/17 at 17:01; Status DC Quetiapine Fumarate (SEROquel) 25 mg DAILY PO ; Start 05/31/17 at 09:00 Active Scripts Active Reported Glimepiride 2 Mg Tablet 2 Mg PO DAILY Victoza 3-Johan (Liraglutide) 0.6 Mg/0.1 Ml Pen.injctr 1.8 Mg SQ DAILY Amitriptyline Hcl 50 Mg Tablet 50 Mg PO HS Simvastatin 20 Mg Tablet 20 Mg PO HS Donepezil Hcl 10 Mg Tablet 10 Mg PO HS Metformin Hcl 1,000 Mg Tablet 1,000 Mg PO [id number] Quinapril Hcl 20 Mg Tablet 20 Mg PO DAILY Diagnosis: Problems: (1) Psychosis, atypical (2) Impulse control disorder (3) Dementia, vascular, with depression (4) Dementia, vascular, with delusions (5) Dementia in Alzheimer's disease with depression (6) Dementia in Alzheimer's disease with delusions (7) Anxiety disorder SHAE GRANT MD May 30, 2017 18:45
[2017-05-30] MEDS: traZODone 50 MG TABLET. PO SCH (20:08)
[2017-05-30] MEDS: MIRTAZAPINE 7.5 MG TABLET. PO SCH (20:11)
[2017-05-30] MEDS: DONEPEZIL HCL 10 MG TABLET PO SCH (20:11)
[2017-05-30] MEDS: SIMVASTATIN 20 MG TABLET PO SCH (20:12)
[2017-05-31] MEDS ORDERED: ACET325T9 PO (02:20)
[2017-05-31] MEDS ORDERED: LORA0.5T PO (02:24)
[2017-05-31] MEDS ORDERED: MAG30ORA2 PO (02:26)
[2017-05-31] MEDS ORDERED: MAGN2400 PO (02:27)
[2017-05-31] MEDS ORDERED: MAGN400T3 PO (02:28)
[2017-05-31] MEDS ORDERED: MEMA10TA PO (02:29)
[2017-05-31] MEDS ORDERED: METH29OI TP (02:30)
[2017-05-31] MEDS ORDERED: METO25TA4 PO (02:31)
[2017-05-31] MEDS ORDERED: MINE473L5 TP (02:39)
[2017-05-31] MEDS ORDERED: MINE120C TP (02:39)
[2017-05-31] MEDS ORDERED: MIRT15TA3 PO (02:41)
[2017-05-31] MEDS ORDERED: OLAN5TAB5 PO (02:43)
[2017-05-31] MEDS ORDERED: QUET25TA5 PO ×2 (02:47→02:49)
[2017-05-31] MEDS ORDERED: SERT50TA PO (02:50)
[2017-05-31] MEDS ORDERED: TRAZ50TA15 PO ×2 (02:52→02:53)
--- NOTE | 2017-05-31 03:24 | PN ---
DATE: 05/29/2017 This is late entry for 05/29/2017 and covers the elements not covered in my initial note. HISTORY OF PRESENT ILLNESS: I met with the patient and evening of 05/29/2017. Discussed with social service staff at length and assigned a capacity statement that DPOA should be activated. The patient is very upset that her is looking for a more structured placement for her. The patient minimizes most of the memory deficits believes the only reason she was hospitalized was that she forgot to open the garage door and it got broken in the process because of the security lock. She is able to do 2 steps and serial sevens counting on her fingers, able to spell world forward and backward, no errors. Initially she had 2 errors, but corrected over the span of 2 minutes. Speech is coherent, anxious. I met with her at length in her room and she shut the door because she wanted to talk about her cognition and placement options. MENTAL STATUS EXAMINATION: Speech coherent, rapid, initially labile, anxious, tearful and late in the session, she was better, abstraction fair, computation impaired, language function intact. Attention span short. LABORATORY DATA: Reviewed. IMPRESSION: Unchanged from initial note. PLAN: I will defer to social service staff for appropriate placement options, maintain psychotropics mentioned in my initial note. Namenda was increased to 10 twice a day, trazodone added, starting , increase the 12.5 mg Seroquel to 25 mg and continue the other 2 dosages at 25 mg. SHAE GRANT MD DR: HAN/john paul JOB#: [id number] / [id number]
[2017-05-31] MEDS: metFORMIN 500 MG TABLET PO SCH (08:07)
[2017-05-31] MEDS: GLIMEPIRIDE 2 MG TABLET PO SCH (08:07)
[2017-05-31] MEDS: MAGNESIUM OXIDE 400 MG TABLET PO SCH (08:08)
[2017-05-31] MEDS: METOPROLOL TART IMMED RELEASE 25 MG TABLET PO SCH (08:08)
[2017-05-31] MEDS: MEMANTINE 10 MG TABLET. PO SCH (08:08)
[2017-05-31] MEDS: LISINOPRIL 20 MG TABLET PO SCH (08:09)
[2017-05-31] MEDS: MINERAL OIL/PETROLATUM TOPICAL CREAM 113GM JAR. TP SCH (08:09)
[2017-05-31] MEDS: SERTRALINE 50 MG TABLET. PO SCH (08:09)
[2017-05-31] MEDS ORDERED: QUEtiapine 25 MG TABLET. PO SCH (09:00)
[2017-05-31] MEDS: QUEtiapine 25 MG TABLET. PO SCH (12:12)
[2017-05-31 13:10] VITALS: BP 95/60
--- NOTE | 2017-05-31 18:18 | PDOC ---
Exam Roberto Demential Exam: Roberto Note: Please also refer to the separate dictated note~for this date of service dictated separately.~Patient seen individually. Discussed the patient with Nursing staff reviewed the chart.~Reviewed interim history and current functioning. Reviewed vital signs,~Labs/ Radiology~and current medications noted below. Continue current treatment with the changes noted in the dictated addendum note Assessment: Vital Signs: Vital Signs Date Time Temp Pulse Resp B/P (MAP) Pulse Ox O2 Delivery O2 Flow Rate FiO2 05/31/17 13:10 97.8 77 18 95/60 (72) 97 Room Air I&O Intake and Output 05/31/17 07:00 Intake Total 1320 ml Balance 1320 ml Intake Oral 1320 ml # Bowel Movements 1 Labs: Laboratory Tests Test 05/30/17 19:01 05/31/17 07:17 05/31/17 11:58 05/31/17 14:50 Glucose (Fingerstick) 125 mg/dL (70-99) H 101 mg/dL (70-99) H 140 mg/dL (70-99) H 115 mg/dL (70-99) H Current Medications: Meds: Current Medications Acetaminophen (Tylenol) 650 mg PRN Q6HRS PRN PO PAIN / TEMP; Start 05/20/17 at 02:45; Stop 05/31/17 at 16:32; Status DC Multi-Ingredient Ointment (Analgesic Newell) 1 renetta PRN QID PRN TP MUSCLE PAIN; Start 05/20/17 at 02:45; Stop 05/31/17 at 16:32; Status DC Al Hydroxide/Mg Hydroxide (Mylanta Plus Xs) 15 ml PRN AFTMEALHC PRN PO DYSPEPSIA; Start 05/20/17 at 02:45; Stop 05/31/17 at 16:32; Status DC Magnesium Hydroxide (Milk Of Magnesia) 2,400 mg PRN QHS PRN PO CONSTIPATION; Start 05/20/17 at 02:45; Stop 05/31/17 at 16:32; Status DC Amitriptyline HCl (Elavil) 50 mg HS PO Last administered on 05/20/17t 20:24; Start 05/20/17 at 21:00; Stop 05/21/17 at 20:03; Status DC Donepezil HCl (Aricept) 10 mg HS PO Last administered on 05/30/17 20:11; Start 05/20/17 at 21:00; Stop 05/31/17 at 16:32; Status DC Simvastatin (Zocor) 20 mg HS PO Last administered on 05/30/17 20:12; Start 09/24 at 21:00; Stop 05/31/17 at 16:32; Status DC Non-Formulary Medication 1.8 mg DAILY SQ ; Start 05/20/17 at 09:00; Stop at 16:33; Status DC Metformin HCl (Glucophage) 1,000 mg BIDWMEALS PO Last administered on 08:07; Start 05/20/17 at 08:00; Stop 05/31/17 at 16:32; Status DC Lisinopril (Prinivil) 20 mg DAILY PO Last administered on 05/20/17 08:07; Start 05/20/17 at 09:00; Stop 05/20/17 at 19:28; Status DC Olanzapine (ZyPREXA ZYDIS) 2.5 mg PRN Q2HR PRN PO PSYCHOSIS Last administered on 05/27/17 03:27; Start 05/20/17 at 16:00; Stop 05/31/17 at 16:32; Status DC Non-Formulary Medication 1.8 mg DAILYWSUP SQ Last administered on 05/30/17 17: 25; Start 05/20/17 at 17:00; Stop 05/31/17 at 16:32; Status DC Potassium Chloride (Klor-Con) 40 meq 1X ONCE PO Last administered on 20:23; Start 05/20/17 at 20:00; Stop 05/20/17 at 20:01; Status DC Magnesium Oxide (Magnesium Oxide) 400 mg DAILY PO Last administered on 08:08; Start 05/20/17 at 20:00; Stop 05/31/17 at 16:32; Status DC Lisinopril (Prinivil) 20 mg BID PO Last administered on 05/31/17 08:09; Start 05/20/17 at 21:00; Stop 05/31/17 at 16:32; Status DC Multi-Ingred Cream/Lotion/Oil/ Oint (Hydrocerin) 1 renetta BID TP Last administered on 05/31/17 08:09; Start 05/21/17 at 09:00; Stop 05/31/17 at 16:32 ; Status DC Mirtazapine (Remeron) 7.5 mg QHS PO Last administered on 05/30/17 20:11; Start 05/21/17 at 21:00; Stop 05/31/17 at 16:32; Status DC Sertraline HCl (Zoloft) 25 mg DAILY PO Last administered on 05/22/17 08:01; Start 05/22/17 at 09:00; Stop 05/22/17 at 19:05; Status DC Sertraline HCl (Zoloft) 50 mg DAILY PO Last administered on 05/31/17 08:09; Start 05/23/17 at 09:00; Stop 05/31/17 at 16:32; Status DC Lorazepam (Ativan) 0.25 mg PRN Q2HR PRN PO ANXIETY / AGITATION Last administered on 05/28/17 04:38; Start 05/23/17 at 18:45; Stop 05/31/17 at 16:32 ; Status DC Quetiapine Fumarate (SEROquel) 25 mg QHS PO Last administered on 05/28/17 19: 32; Start 05/25/17 at 21:00; Stop 05/29/17 at 00:38; Status DC Memantine (Namenda) 5 mg BID PO Last administered on 05/28/17 08:01; Start at 21:00; Stop 05/28/17 at 19:26; Status DC Metoprolol Tartrate (Lopressor) 25 mg BID PO Last administered on 05/31/17 08: 08; Start 05/26/17 at 21:00; Stop 05/31/17 at 16:32; Status DC Glimepiride (Amaryl) 2 mg DAILYWBKFT PO Last administered on 05/31/17 08:07; Start 05/27/17 at 08:00; Stop 05/31/17 at 16:32; Status DC Quetiapine Fumarate (SEROquel) 12.5 mg DAILY PO Last administered on 05/30/17 08:17; Start 05/27/17 at 09:00; Stop 05/30/17 at 17:04; Status DC Memantine (Namenda) 10 mg BID PO Last administered on 05/31/17 08:08; Start at 21:00; Stop 05/31/17 at 16:32; Status DC Trazodone HCl (Desyrel) 50 mg QHS PO Last administered on 05/30/17 20:08; Start 05/28/17 at 21:00; Stop 05/31/17 at 16:32; Status DC Trazodone HCl (Desyrel) 50 mg PRN QHS PRN PO SLEEP; Start 05/28/17 at 19:30; Stop 05/31/17 at 16:32; Status DC Quetiapine Fumarate (SEROquel) 25 mg AFTRNOON PO ; Start 05/29/17 at 12:00; Stop 05/29/17 at 12:00; Status DC Quetiapine Fumarate (SEROquel) 25 mg NOON PO ; Start 05/29/17 at 12:00; Stop at 12:00; Status DC Quetiapine Fumarate (SEROquel) 25 mg BID@1200,2100 PO Last administered on 05/31 12:12; Start 05/29/17 at 12:00; Stop 05/31/17 at 16:32; Status DC Metformin HCl (Glucophage) 1,000 mg 1X ONCE PO Last administered on 05/30/17 17:25; Start 05/30/17 at 17:00; Stop 05/30/17 at 17:01; Status DC Quetiapine Fumarate (SEROquel) 25 mg DAILY PO Last administered on 05/31/17 08 :10; Start 05/31/17 at 09:00; Stop 05/31/17 at 16:32; Status DC Active Scripts Active Reported Trazodone Hcl 50 Mg Tablet 50 Mg PO PRN QHS PRN Trazodone Hcl 50 Mg Tablet 50 Mg PO QHS Zoloft (Sertraline Hcl) 50 Mg Tablet 50 Mg PO DAILY Seroquel (Quetiapine Fumarate) 25 Mg Tablet 25 Mg PO DAILY AT 0900 Seroquel (Quetiapine Fumarate) 25 Mg Tablet 25 Mg PO BID AT 1200 AND 2100 Zyprexa Zydis (Olanzapine) 5 Mg Tab.rapdis 2.5 Mg PO PRN Q2HR PRN Mirtazapine 15 Mg Tablet 7.5 Mg PO QHS Hydrocerin Lotion (Mineral Oil/I-Prop Myr/Water) 472 Ml Lotion 1 Applic TP BID Eucerin Creme (Mineral Oil/Petrolatum,White) 120 Gm Cream..g. 120 Gm TP Metoprolol Tartrate 25 Mg Tablet 25 Mg PO BID Analgesic Newell (Methyl Salicylate/Menthol) 28 Gm Oint...g. 1 Applic TP PRN QID PRN Namenda (Memantine Hcl) 10 Mg Tablet 10 Mg PO BID Magnesium Oxide 400 Mg Tablet 400 Mg PO DAILY Milk Of Magnesia (Magnesium Hydroxide) 2,400 Mg/10 Ml Oral.susp 2,400 Mg PO PRN QHS PRN Mag-Al Plus Xs Suspension (Mag Hydrox/Al Hydrox/Simeth) 30 Ml Oral.susp 15 Ml PO PRN AFTMEALHC PRN Tylenol (Acetaminophen) 325 Mg Tablet 650 Mg PO PRN Q6HRS PRN Glimepiride 2 Mg Tablet 1 Mg PO DAILYWBKFT Victoza 3-Johan (Liraglutide) 0.6 Mg/0.1 Ml Pen.injctr 1.8 Mg SQ DAILYWSUP Simvastatin 20 Mg Tablet 20 Mg PO HS Donepezil Hcl 10 Mg Tablet 10 Mg PO HS Metformin Hcl 1,000 Mg Tablet 500 Mg PO [id number] Quinapril Hcl 20 Mg Tablet 10 Mg PO DAILY Diagnosis: Problems: (1) Psychosis, atypical (2) Impulse control disorder (3) Dementia, vascular, with depression (4) Dementia, vascular, with delusions (5) Dementia in Alzheimer's disease with depression (6) Dementia in Alzheimer's disease with delusions (7) Anxiety disorder SHAE GRANT MD May 31, 2017 18:18
--- NOTE | 2017-06-01 02:03 | PN ---
DATE: 05/30/2017 This late entry 05/30/2017 covers elements not covered in my initial note. SUBJECTIVE: I met with the patient evening of 05/30/2017 at some length. Per nursing report, she is doing a little bit. The morning of 05/30/2017, she was upset, believes staff are not caring for her as much as they did with the other demented patients, but she is fixated on wanting to go home. I had a very lengthy telephone conversation with the patient's , Bethel Hughes [phone] about the patient's diagnosis and medications . has apparently made arrangements for a 24-hour care in the home for the patient and quite keen to discharge her to outpatient treatment starting 05/31/2017. REVIEW OF SYSTEMS: No CV, , pulmonary, eye, ENT system symptoms on review. Reliability varies. MENTAL STATUS EXAM: Oriented to herself and situation. Speech coherent, less pressured. Abstraction fair, computation impaired, language function intact, attention span short, mood and affect despite the above is improved. LABORATORY DATA: Reviewed. IMPRESSION: Unchanged from initial note. PLAN: Continue current psychotropics mentioned in my initial note. Reviewed drug interactions and risk benefit ratio favors no further change at this time, but she should have outpatient followup with the psychiatrist to reassess on an ongoing basis and hopefully taper the Seroquel as an outpatient. SHAE GRANT MD DR: HAN/john paul JOB#: [id number] / [id number]
--- NOTE | 2017-06-01 20:31 | DS ---
DATE OF DISCHARGE: 05/31/2017 REASON FOR ADMISSION: Please refer to the admission history for details. Briefly, the patient is a 72-year-old female admitted from [facility] after she was found to be increasingly aggressive at home, more confused with significant short-term memory deficits. She was reportedly abusive to family, anger was a problem and she was having passive suicidal ideation and making suicidal statements. Reportedly, she ruined the garage door after she attempted to lock it with a metal the door was ruined, metal was bent. Reportedly, she drives around, gets lost, refusing medications. Behaviors were deemed dangerous, unmanageable , having failed outpatient treatment. She was referred for inpatient psychiatric stabilization. SIGNIFICANT FINDINGS AND CLINICAL COURSE: Following admission, the patient was seen daily individually by myself from a psychiatric standpoint and medical followup with Dr. Mc/Dr. Anna. This note covers elements not covered in my initial note of 05/31/2017. The patient had significant short term memory deficits, poor insight accepting this anxious, restless. Adjustments were made in her psychotropics and she seemed to respond to a combination of Aricept 10 mg a day, Zoloft 50 mg a day, Remeron 7.5 mg at bedtime, Zyprexa p.r.n., Ativan p.r.n., Seroquel 25 mg 3 times a day, Namenda 10 mg b.i.d., trazodone 50 at bedtime, february repeat x 1. We had recommended a more structured placement at discharge, but the had made arrangements with social service staff for in-home care, so someone was with the patient at all times. CONDITION AT DISCHARGE: Improved. REVIEW OF SYSTEMS: Prior to discharge, no CV, , pulmonary, eye, ENT system symptoms on review. MENTAL STATUS EXAM: Oriented to herself and situation. Speech coherent. Thought processes goal directed. Insight was improved. Language function intact. Mood and affect improved. No clear suicidal or homicidal ideation. FINAL DIAGNOSES: Major neurocognitive disorder, early Alzheimer, vascular with depression; anxiety disorder, unspecified; impulse control disorder, unspecified. Rest unchanged from admission. DISCHARGE MEDICATIONS: Please refer to the [facility]AD. Outpatient medical and psychiatric followup was arranged per social service staff. MAN Miri GRANT MD DR: Kyle JOB#: [id number] / [id number]
== END 2017-05-31 16:25 | disposition home health service (06) | DRG 884 ==
LOC: GEROPSY 02:06
PROVIDERS: ADMIT Psychiatry & Neurology Psychiatry; ATTEND Psychiatry & Neurology Psychiatry
DX: F01.51 Vascular dementia, unspecified severity, with behavioral disturbance (principal); G30.0 Alzheimer's disease with early onset; R45.851 Suicidal ideations; F02.81 Dementia in other diseases classified elsewhere, unspecified severity, with behavioral disturbance; E11.9 Type 2 diabetes mellitus without complications; E78.5 Hyperlipidemia, unspecified; E83.42 Hypomagnesemia; E87.6 Hypokalemia; F32.9 Major depressive disorder, single episode, unspecified; F41.9 Anxiety disorder, unspecified; F22 Delusional disorders; F63.9 Impulse disorder, unspecified; I10 Essential (primary) hypertension; G47.00 Insomnia, unspecified; F29 Unspecified psychosis not due to a substance or known physiological condition; Z66 Do not resuscitate; Y92.481 Parking lot as the place of occurrence of the external cause; Z79.899 Other long term (current) drug therapy
CPT/HCPCS: 36415; 70450; 80048; 80053; 80061; 82306; 82607; 82947; 83036; 83540; 83550; 83735; 84436; 84443; 84480; 85025; 86592; 86593; 93005